=== PATIENT | female | born 1965 | race Caucasian/White ===

== ENCOUNTER 2020-11-23 23:59 | Inpatient (IN) | payer MEDICARE ==
[~2020-11-23] VITALS: Ht 160 cm; Wt 84.6 kg
--- NOTE | ~2020-11-23 | HEMODYNAMI ---
PATIENT:DAVEY CORNELIUS MEDICAL RECORD: [id number] : 65 [facility] AD[facility] DATE: 11/24/20 Generatedon:111:19 Patient name: DAVEY CORNELIUS Patient #: [id number] SSN: [id number] : 1965 Date of study: 11/26/2020 Page: Of Hemodynamic Procedure Report Patient Data Patient Demographics Procedure consent was obtained First Name: DAVEY Gender: Female Last Name: ASHLI : 1965 Patient #: [id number] Age: 54 year(s) Race: SSN: [id number] Additional ID: [id number] Contact details [address]: [address] [place] [address] State: [place] City: [place] Zip code: [address] Past Medical History Allergies: No known allergies Admission Admission Data Admission Date: 11/24/2020 Admission Time: 4:48 Arrival Date: 11/26/2020 Arrival Time: 0:00 Admit Source: Other Insurance Payor: Medicare Room #: D.2312 [facility] #: [id number] Lab Results Lab Result Date: 11/26/2020 Lab Result Time: 0:00 Biochemistry Name Units Result Min Max BUN mg/dl 15 --(--*-)-- 7 18 Creatinine mg/dl 0.7 --(*---)-- 0.6 1.3 eGFR ml/min 90 --(*---)-- 90 120 NONAFRICAN CBC Name Units Result Min Max Hematocrit % 31.9 *-(----)-- 42 54 Hemoglobin g/dl 10.2 *-(----)-- 13.5 17.5 Procedure Procedure Types Cath Procedure Diagnostic Procedure LHC [facility] w/Coronaries Intra-Aortic Balloon Pump Sedation Charges Moderate Sedation 10-24 minutes PCI Procedure Hemochron ACT Test Procedure Description Procedure Date Procedure Date: 11/26/2020 Procedure Start Time: 10:03 Procedure End Time: 10:40 Procedure Staff Name Function Patricia Wells RT Scrub Rosendo Gilbert RN Nurse Avila Clarke MD Performing Physician Jo Anderson RT Monitor Procedure Data Cath Procedure Fluoroscopy Diagnostic fluoroscopy Total fluoroscopy Time: 1.8 time: 1.8 min min Diagnostic fluoroscopy Total fluoroscopy dose: 445 dose: 445 mGy mGy Contrast Material Contrast Material Type Amount (ml) Isovue 370 50 Entry Location Entry Primary Successful Side Size Upsize Upsize Entry Closure Succes sful Closure Location (Fr) 1 (Fr) 2 (Fr) Remarks Device Remarks Femoral Right 5 Fr 8 Fr artery Estimated blood loss: 10 ml Diagnostic catheters Device Type Used For End Catheter Placement MULTIPACK JL 4.0 5Fr Procedure catheter MULTIPACK 3DRC 5Fr Procedure catheter MULTIPACK Pigtail 5 Fr Procedure catheter Procedure Complications No complications Procedure Medications Medication Administration Route Dosage Oxygen NC 5 l/min Lidocaine 2% added to field 20 Heparin Flush Bag added to field 2 bags (1000units/500ml NS) 0.9% NaCl I.V. 100 ml/hr Versed I.V. 1 mg Fentanyl I.V. 50 mcg Integrilin (Bolus I.V. 7.9 ml 2mg/ml) Heparin Drip I.V. drip 1000 units/hr (51053znaye/250 D5W) Hemodynamics Rest HGB: 10.2 (g/dl) Heart Rate: 78 (bpm) Pressure Samples Time Site Value (mmHg) Purpose Heart Use Rate(bpm) 10:10 LV 110/10,5 Snapshot 72 Gradients Valve Time Site Site Mean SEP/DFP Peak To Heart Use 1 2 (mmHg) (sec/min) Peak Rate (mmHg) (bpm) Aortic 10:10 LV AO 75 Snapshots Pre Cath Intra NCS Post Cath Vital Signs Time Heart Resp SPO2 etCO2 NIBP (mmHg) Rhythm Pain Sedation Rate (ipm) (%) (mmHg) Status Level (bpm) 9:52:40 75 36 96 0 141/82(118) NSR 0 (11) 10(A) , No pain 9:56:54 81 13 95 0 133/78(105) NSR 0 (11) 10(A) , No pain 10:01:08 73 15 93 0 134/75(100) NSR 0 (11) 10(A) , No pain 10:05:22 75 11 94 0 136/74(99) NSR 0 (11) 9(A) , No pain 10:09:34 78 18 93 0 134/76(105) NSR 0 (11) 9(A) , No pain 10:13:50 79 18 95 0 135/70(109) NSR 0 (11) 9(A) , No pain 10:18:04 77 18 94 0 126/76(106) NSR 0 (11) 9(A) , No pain 10:22:14 79 15 95 0 129/74(114) NSR 0 (11) 9(A) , No pain 10:26:26 72 16 94 0 130/75(105) NSR 0 (11) 10(A) , No pain 10:30:44 71 16 94 0 124/57(91) NSR 0 (11) 10(A) , No pain 10:34:48 72 23 96 0 116/61(95) NSR 0 (11) 10(A) , No pain 10:53:55 79 20 95 0 121/53(95) NSR 0 (11) 10(A) , No pain 10:58:09 73 19 95 0 118/60(102) NSR 0 (11) 10(A) , No pain 11:08:48 80 16 96 0 107/58(100) NSR 0 (11) 10(A) , No pain Medications Time Medication Route Dose Verified Delivered Reason Notes Effectiveness by by 9:55:04 Oxygen NC 5 l/min Avila Stuartie used for high St Ottoniel Gilbert RN procedure flow in MD use from icu. 9:55:11 Lidocaine 2% added 20ml Avila Avila for local to vial [facility] anesthetic field MD DOLAN 9:55:18 Heparin Flush added 2 bags Avila Avila used for Bag to [facility] procedure (1000units/500ml field MD DOLAN NS) 9:55:26 0.9% NaCl I.V. 100 Avila Robbins Per ml/hr St Ottoniel Gilbert RN physician 10:02:26 Versed I.V. 1 mg Avila Davidsonie for sedation St Ottoniel Gilbert RN, MD 10:02:33 Fentanyl I.V. 50 mcg Avila Davidsonie for sedation St Ottoniel Gilbert RN, MD 10:08:09 Integrilin I.V. 7.9 ml Avila Davidsonie for wasted (Bolus 2mg/ml) St Ottoniel coles 2.1 ml therapy of vial 10:33:59 Heparin Drip I.V. 1000 Avila Rosendo Per [facility] ed (83187hbwwm/250 drip units/hr St Ottoniel Gilbert RN physician with dr Swift) MD giang via alaris pump at 10 ml/hr. Procedure Log Time Note 9:14:41 Informed consent obtained and on chart 9:15:02 Diagnostic Cath Status : Urgent 9:15:28 Arrival Date: 11/26/2020 12:00:00 AM 9:15:29 Admit Source: Other 9:15:43 Insurance Payor : Medicare 9:33:54 Lab Result : Hemoglobin 10.2 g/dl 9:33:54 Lab Result : Hematocrit 31.9 % 9:33:54 Lab Result : eGFR NONAFRICAN 90 ml/min 9:33:54 Lab Result : BUN 15 mg/dl 9:33:54 Lab Result : Creatinine 0.7 mg/dl 9:36:29 ACC Patient presents with Unstable Angina CCS Anginal Class 2--Slight limitation of ordinary activity. 9:36:32 Procedure Status Urgent Heart Cath (IP). 9:36:35 Time tracking: Regular hours (M-F 7:00 - 5:00) 9:36:37 Rosendo Gilbert RN sent for patient. Start room use. 9:37:06 H&P Date Dictated: 11/24/2020 Within 30 days and on chart.. 9:37:09 Family in waiting room. 9:37:10 Patient NPO since Midnight. 9:37:18 Patient allergic to No known allergies 9:37:25 Lab results completed and on chart. 9:37:29 Stress Test: no; N/A ? 9:37:32 Sharps counted by scrub and verified by R.N. 9:37:32 Alarms reviewed by R. N. 9:42:56 Patient received from ICU to CCL 2 Alert and oriented. Tansferred to table in Supine position. 9:42:57 Warm blankets applied, and lizet hugger turned on for patient comfort. 9:42:58 ECG and BP/O2 sat monitors applied to patient. 9:42:58 Correct patient and procedure confirmed by team. 9:42:59 Pre-op teaching completed and patient verbalized understanding. 9:42:59 Pre-procedure instructions explained to patient. 9:43:02 Is the patient allergic to Iodine/contrast media? No. 9:51:32 Vital chart was started 9:55:04 Oxygen 5 l/min NC was administered by Rosendo Gilbert RN; used for procedure; high flow in use from icu. Verbal order read back and verified. 9:55:11 Lidocaine 2% 20ml vial added to field was administered by Avila Clarke MD; for local anesthetic; Verbal order read back and verified. 9:55:18 Heparin Flush Bag (1000units/500ml NS) 2 bags added to field was administered by Avila Clarke MD; used for procedure; Verbal order read back and verified. 9:55:26 0.9% NaCl 100 ml/hr I.V. was administered by Rosendo Gilbert RN; Per physician; Verbal order read back and verified. 9:56:08 Baseline sample Acquired. 9:56:17 Rhythm: sinus rhythm , w/ ST elevation 9:56:19 Full Disclosure recording started 9:56:24 Was the patient premedicated? No 9:56:27 Is patient on blood thinner?Unknown 9:56:29 Patient diabetic? Yes. 9:56:31 If diabetic: On Metformin? Yes 9:56:36 If on Metformin: Last Dose? 11/23/2020 9:58:01 Patient not . Patient has had hysterectomy. 9:58:02 ----Pre-sedation anethsthesia assessment.---- 9:58:04 Previous problem with sedation/anesthesia? No ? 9:58:05 Snore? Yes 9:58:07 Sleep apnea? Unknown 9:58:08 Deviated septum? No 9:58:09 Opens mouth fully? Yes 9:58:10 Sticks out tongue? Yes 9:58:15 Airway obstruction? No ? 9:58:21 Dentures? Yes in tight 9:58:51 Pre procedure: right dorsailis pedis pulse 1+ Palpable, but thready & weak; easily obliterated 9:58:54 Patient pain scale 0/10 ?. 9:59:00 IV patent on arrival in left antecubital with 0.9% NaCl at KVO. 9:59:06 Use device set Femoral Dx 9:59:07 ACIST Syringe (93836) opened to sterile field. 9:59:08 Medline Cath Pack ([id number]) opened to sterile field. 9:59:08 Bag Decanter (2001S) opened to sterile field. 9:59:10 ACIST Manifold (75610) opened to sterile field. 9:59:10 ACIST Hand Control (87054) opened to sterile field. 9:59:11 DIAGNOSTIC Multipack 5Fr catheter set ([id number]) opened to sterile field. 9:59:12 Tegaderm 4 x 4 (1626W) opened to sterile field. 9:59:13 SHEATH 5FR Nahma (LML750) opened to sterile field. 9:59:14 EMERALD Guide Wire (969-199) opened to sterile field. 9:59:49 Final Timeout: patient, procedure, and site verified with staff and physician. All members of the team are in agreement. 9:59:49 --------ALL STOP TIME OUT------ 9:59:54 Right groin site verified by team. 9:59:56 Fire Safety Assessment: A--An alcohol-based skin anteseptic being used preoperatively., C--Open oxygen or nitrous oxide is being used., D--An ESU, laser, or fiber-optic light is being used. 9:59:59 Physical assessment completed. ASA score P 2 - A patient with mild systemic disease as per Avila Clarke MD. 10:00:02 1) 90+ Normal kidney functon but urine findings or structural abnormalities or genetic trait point to kidney disease. 10:00:04 Maximum allowable contrast dose (3.7 X eGFR X 0.75)250 ml. 10:00:06 Sedation plan: IV Moderate Sedation Medication:Versed, Fentanyl 10:02:26 Versed 1 mg I.V. was administered by Rosendo Gilbert RN; for sedation; Verbal order read back and verified. 10:02:33 Fentanyl 50 mcg I.V. was administered by Rosendo Gilbert RN; for sedation; Verbal order read back and verified. 10:03:24 Procedure started. 10:03:36 Local anesthetic to right femoral artery with Lidocaine 2% by Avila Clarke MD.INITIAL ACCESS ONLY 10:05:05 A 5 Fr sheath was inserted into the Right Femoral artery 10:05:14 A MULTIPACK JL 4.0 5Fr catheter was advanced over the wire and used for Procedure. 10:05:44 LCA angiography performed. 10:05:46 Injector settings: Ml/sec: 3, Volume: 6, 10:06:39 Catheter removed. 10:06:45 A MULTIPACK 3DRC 5Fr catheter was advanced over the wire and used for Procedure. 10:07:16 RCA angiography performed. 10:07:18 Injector settings: Ml/sec: 3, Volume: 6, 10:07:41 RCA angiography performed. 10:07:45 Injector settings: Ml/sec: 3, Volume: 6, 10:07:48 ACCDominant side:Right 10:08:09 Integrilin (Bolus 2mg/ml) 7.9 ml I.V. was administered by Rosendo Gilbert RN; for antiplatelet therapy; wasted 2.1 ml of vial Verbal order read back and verified. 10:08:25 Catheter exchanged over wire. 10:08:30 A MULTIPACK Pigtail 5 Fr catheter was advanced over the wire and used for Procedure. 10:08:54 LV gram done using [place] 10:09:09 Injector settings: Ml/sec: 5, Volume: 15, 10:10:16 LV hemodynamics recorded. 10:10:32 EF : 45 % 10:10:36 Catheter removed. 10:14:50 IABP-------- 10:18:[address] Van (833690) opened to sterile field. 10:18:43 Sheath upsized to a 8 Fr. 10:18:49 IABP 34cm balloon catheter ([id number]) opened to sterile field. 10:19:00 34cc IABP inserted into the RFA . 10:27:57 TUBING Contrast Injection High Pressure (HEU115R) opened to sterile field. 10:28:20 Augmentation: 1:1 per physician. 10:28:55 Trigger: Pressure 10:29:40 Procedure ended.(Physican Out) 10:29:43 Fluoroscopy time 01.80 minutes. 10:29:47 Fluoroscopy dose: 445 mGy 10:29:47 Flurop Dose total: 445 10:29:52 Dose Area Product 77218 mGy/cm. 10:30:00 Contrast amount:Isovue 370 50ml. 10:30:03 Maximum allowable dose exceeded? No. 10:30:04 Sharps counted by scrub and verified by R.N. 10:30:18 Post-op/insertion site Right Femoral artery dressed using a 4 x 4 and Tegaderm. 10:30:25 Post right femoral artery:stable, soft, clean and dry 10:33:34 SUTURE ETHILON 2-0 BLK MONO FS opened to sterile field. 10:33:35 SUTURE ETHILON 2-0 BLK MONO FS opened to sterile field. 10:33:59 Heparin Drip (08595trkkq/250 D5W) 1000 units/hr I.V. drip was administered by Rosendo Gilbert RN; Per physician; verified with dr giang via alaris pump at 10 ml/hr. Verbal order read back and verified. 10:34:10 IABP SUTURED TO SKIN WITH 2-0 SILK BY TECH AND TEGADERM APPLIED TO HOLD PLACEMENT. 10:34:57 Post Procedure Pulses reassessed and unchanged 10:35:00 Post procedure: right dorsailis pedis pulse 1+ Palpable, but thready & weak; easily obliterated. 10:35:04 Post-procedure physical assessment completed. ASA score P 3 - A patient with severe systemic disease as per Avila Clarke MD. 10:35:07 Post procedure rhythm: unchanged. 10:35:09 Estimated blood loss: 10 ml 10:35:11 Patient needs reinforcement of post procedure teaching. 10:35:11 Post procedure instruction explained to patient.Patient verbalizes understanding. 10:36:10 Procedure type changed to Cath procedure, Diagnostic procedure, LHC, C w/Coronaries, Intra-Aortic Balloon Pump, Sedation Charges, Moderate Sedation 10-24 minutes, PCI procedure, Hemochron ACT Test 10:39:50 Procedure and supply charges have been captured, reviewed, submitted and are correct. 10:39:53 Procedure Complication : No complications 10:39:59 [facility] Findings: MVD- PCI performed (see procedure note) 10:40:02 [facility] Findings: MVD- CABG consult 10:40:04 Operative report dictated upon procedure completion. 10:40:05 See physician's report for complete and final results. 10:40:11 Report given to ICU. 10:40:15 Patient transfered to ICU with Bed. 10:40:17 Full Disclosure recording stopped 10:40:17 Procedure ended. 10:40:25 End room use (Document Last) 10:42:03 Vital chart was stopped 11:03:33 Pt with femoral sheath to rt groin for IABP, no hematoma or bleeding noted. 11:04:50 Awaiting new room assignment. Device Usage Item Name Manufacture Quantity Catalog Number [facility] Minimal Lot# / Charge Number Stock Stock Serial# Code ACIST Syringe Acist 1 18541 710775 879951 [id number] 20 (72521) Medical [employer] [place] Bag Decanter Microtek 1 282450 64202 195687 5 () Medical Inc. Medline Cath Medline 1 [id number] 579847 15586 695825 5 Pack ([id number]) ACIST Hand Acist 1 11935 285339 987001 409177 5 Control (69826) Medical Systems Inc ACIST Manifold Acist 1 87114 507826 474388 636128 5 (22179) [employer] [place] DIAGNOSTIC Cardinal 1 [id number] 870161 08870 016793 30 Multipack 5Fr Health catheter set ([id number]) Tegaderm 4 x 4 3M 1 1626W 919050 819418 021846 5 (1626W) SHEATH 5FR Terumo 1 AEP259 511831 003272 607566 5 Nahma (NGC657) EMERALD Guide Cardinal 1 502-455 162883 099216 956454 5 Wire (502-455) Health MULTIPACK JL Cardinal 1 392183 5 4.0 5Fr Health catheter MULTIPACK 3DRC Cardinal 1 949873 5 5Fr catheter Health MULTIPACK Cardinal 1 092580 5 Pigtail 5 Fr Health catheter SHEATH 8FR St St Van 1 058947 091919 916042 725274 5 Van (615952) IABP 34cm GETINGE [place] 1 [id number] 122282 521664 677667 1 [facility] catheter (305443) ([id number]) TUBING Contrast Merit 1 [id number] 931594 471368 331321 5 Injection High Medical Pressure (SDH404N) SUTURE ETHILON Ethicon 2 664H 113067 196275 5 2-0 BLK MONO FS Signature Audit [place] Stage Time Signature Unsigned Intra-Procedure 11/26/2020 Jo Anderson 10:40:40 AM RT(R) Intra-Procedure 11/26/2020 Rosendo Gilbert RN 10:41:42 AM Intra-Procedure 11/26/2020 Avila Clarke MD 10:42:01 AM Ottoniel DOLAN 11/26/2020 10:52:53 AM Intra-Procedure 11/26/2020 Jo Anderson 11:19:06 AM RT(R) Intra-Procedure 11/26/2020 Rosendo Gilbert RN 11:19:22 AM Intra-Procedure 11/26/2020 Avila Bansal 11:19:37 AM Ottoniel DOLAN Signatures Nurse : Rosendo Gilbert RN Signature : Date : Time : Performing Physician : Signature : Avila Clarke MD Date : Time : Monitor : Jo Anderson Signature : RT Date : Time : [address] [address]
[2020-11-24] VITALS (12 sets, daily range): BP systolic 97–167; BP diastolic 46–108; BMI 34.0
--- NOTE | 2020-11-24 00:05 | NUR ---
PT PLACED ON BIPAP
[2020-11-24 00:25] LABS: BASOPHILS 0.8 % (0-2); EOSINOPHILS 0.9 % (0-7); HEMATOCRIT 38.9 % (36.0-48.0); HEMOGLOBIN 12.4 g/dL (12-16); LYMPHOCYTES 37.8 % (15-50); MCHC 31.8 g/dL (31.0-37.0); MCV 72.5 fL (80.0-100.0); MEAN PLATELET VOLUME 7.9 fL (7.4-10.4); MONOCYTES 4.2 % (2-11); NEUTROPHILS 56.3 % (40-80); PLATELET COUNT 446 10x3/uL (130-400); RBC 5.36 10x6/uL (4.00-5.40); WBC 17.4 10x3/uL (4.8-10.8)
[2020-11-24 00:35] LABS: ANION GAP 13.8 mmol/L (8-16); CALCIUM 7.8 mg/dL (8.5-10.1); CARBON DIOXIDE 24.8 mmol/L (21.0-32.0); POTASSIUM - SERUM 3.6 mmol/L (3.5-5.1)
[2020-11-24 00:56] LABS: BILIRUBIN - TOTAL 0.23 mg/dL (0.2-1.3); PROTEIN - SERUM 6.9 g/dL (6.4-8.2)
[2020-11-24 01:23] LABS: C-REACTIVE PROTEIN 0.2 mg/dL (0.0-0.9); TROPONIN-I 0.105 ng/mL (0.000-0.060)
[2020-11-24 04:56] LABS: APTT 27.6 SECONDS (22.8-39.4); INR 1.16 (0.85-1.17); PROTIME 13.7 SECONDS (11.6-15.0)
[2020-11-24 05:29] LABS: MAGNESIUM - SERUM 1.2 mg/dL (1.8-2.4)
[2020-11-24 05:41] LABS: SARS-CoV-2 ANTIGEN NEGATIVE- SARS-COV-2 (NEGATIVE)
[2020-11-24 05:42] LABS: UDS - AMPHET NEGATIVE QUAL (NEGATIVE); UDS - BARB NEGATIVE QUAL (NEGATIVE); UDS - BENZO NEGATIVE QUAL (NEGATIVE); UDS - COCAINE NEGATIVE QUAL (NEGATIVE); UDS - OPIATE NEGATIVE QUAL (NEGATIVE); UDS - PCP NEGATIVE QUAL (NEGATIVE); UDS - THC NEGATIVE QUAL (NEGATIVE)
[2020-11-24 05:51] LABS: BILIRUBIN NEGATIVE (NEGATIVE); KETONE NEGATIVE (NEGATIVE); NITRITE NEGATIVE (NEGATIVE); UROBILINOGEN NORMAL mg/dL (< 2)
--- NOTE | 2020-11-24 19:30 | NUR ---
PATIENT VOMITING INTO BIPAP MASK. PLACED PATIENT ON 9L HIGH FLOW NC. O2 SAT HOLDING AT 94%. ZOFRAN GIVEN. ASSESSED EMESIS AND SPUTUM BLOOD TINGED. PATIENT HR AND BP ELEVATED 2.5 OF LOPRESSOR ADMINISTERED PER ORDER. PAGED DR. FREY. NEW ORDERS GIVEN.
[2020-11-25] VITALS (21 sets, daily range): BP systolic 108–146; BP diastolic 59–92; BMI 33.3
[2020-11-25 05:28] LABS: EOSINOPHILS 0 % (0-7); HEMATOCRIT 32.7 % (36.0-48.0); HEMOGLOBIN 10.7 g/dL (12-16); LYMPHOCYTES 18.6 % (15-50); MCH 23.4 pg (26.0-34.0); MCHC 32.7 g/dL (31.0-37.0); MCV 71.5 fL (80.0-100.0); MEAN PLATELET VOLUME 7.7 fL (7.4-10.4); MONOCYTES 4.4 % (2-11); PLATELET COUNT 365 10x3/uL (130-400); RBC 4.57 10x6/uL (4.00-5.40); RDW 17.2 % (11.5-14.5); WBC 17.3 10x3/uL (4.8-10.8)
[2020-11-25 06:05] LABS: ALBUMIN 2.8 g/dL (3.4-5.0); BILIRUBIN - TOTAL 0.2 mg/dL (0.2-1.3); CARBON DIOXIDE 27.5 mmol/L (21.0-32.0); CREATININE - SERUM 0.9 mg/dL (0.6-1.3); PROTEIN - SERUM 6.5 g/dL (6.4-8.2)
[2020-11-25 06:09] LABS: ANION GAP 11.9 mmol/L (8-16); POTASSIUM - SERUM 4.4 mmol/L (3.5-5.1)
[2020-11-25 06:12] LABS: TROPONIN-I 12.393 ng/mL (0.000-0.060)
--- NOTE | 2020-11-25 06:24 | NUR ---
PAGED CARDIOLOGY REGARDING ELEVATED TROPONIN OF 12.393. SPOKE WITH MARIA GUADALUPE VALENCIA APN. NO ORDERS GIVEN AT THIS TIME. MARIA GUADALUPE IS GONG TO CALL MANAGER CARDIOVASCULAR AND CALL BACK.
[2020-11-25] MEDS ORDERED: LISINOPRIL2.5 MG PO (06:30)
[2020-11-25] MEDS ORDERED: GLUCOPHAGE1000 MG (06:31)
[2020-11-25] MEDS ORDERED: METOPROLOL TART50 MG PO (06:31)
[2020-11-25] MEDS ORDERED: TRAZODONE HCL100 MG PO (06:32)
[2020-11-25] MEDS ORDERED: OMEPRAZOLE CAP 20M PO (06:32)
[2020-11-25] MEDS ORDERED: GLIPIZIDE10 MG PO (06:32)
[2020-11-25] MEDS ORDERED: LOVASTATIN20 MG PO (06:33)
--- NOTE | 2020-11-25 12:35 | NUR ---
PATIENT SITTING ON SIDE OF BED HOLDING CHEST, C/O CHEST PAIN 9/10, AND STATES CANT GET HER BREATH. HR - 141 TO 150, WITH NOTED ST DEPRESSION IN LEAD II, PLACED ON BIPAP, RT NOTIFIED AND PATIENTS RN NOTIFIED. RT AT ROOM FOR BREATHING TREATMENT AND LACY SAUNDERS PAGED. PATIENT RATES PAIN CURRENTLY AT 4/10, AND HR - 86 SPO2 98% ON BIPAP. 12 LEAD ECG COMPLETED.
--- NOTE | 2020-11-25 12:54 | NUR ---
REPAGED CARDIOLOGY. AWAITING CALL BACK.
[2020-11-26] VITALS (48 sets, daily range): BP systolic 114–149; BP diastolic 55–90; Ht 160 cm; Wt 84.6 kg
[2020-11-26 05:20] LABS: BASOPHILS 0.6 % (0-2); EOSINOPHILS 0.1 % (0-7); HEMATOCRIT 31.9 % (36.0-48.0); HEMOGLOBIN 10.2 g/dL (12-16); LYMPHOCYTES 26.8 % (15-50); MCH 23.1 pg (26.0-34.0); MCHC 31.9 g/dL (31.0-37.0); MCV 72.3 fL (80.0-100.0); MEAN PLATELET VOLUME 7.5 fL (7.4-10.4); MONOCYTES 5.1 % (2-11); NEUTROPHILS 67.4 % (40-80); PLATELET COUNT 306 10x3/uL (130-400); RBC 4.41 10x6/uL (4.00-5.40); RDW 17.4 % (11.5-14.5)
[2020-11-26 05:46] LABS: CALC OSMOLALITY 281 mosm/kg (275-300); CARBON DIOXIDE 28.9 mmol/L (21.0-32.0); CHLORIDE - SERUM 103 mmol/L (98-107); CREATININE - SERUM 0.7 mg/dL (0.6-1.3); GLUCOSE 189 mg/dL (74-106); POTASSIUM - SERUM 4.3 mmol/L (3.5-5.1); SODIUM 138 mmol/L (136-145); UREA NITROGEN 15 mg/dL (7-18); eGFR NON AFRICAN AMERICAN > 90 mL/min (90-120)
[2020-11-26 05:47] LABS: WBC 12.9 10x3/uL (4.8-10.8)
[2020-11-26 08:39] LABS: ALT (SGPT) 26 U/L (10-68); CHOL - HDL RATIO 4.6 ratio (2.3-4.1); CHOLESTEROL, TOTAL 160 mg/dL (0-200); HDL CHOLESTEROL 35 mg/dL (32-96); TRIGLYCERIDE 411 mg/dL (30-200)
--- NOTE | 2020-11-26 11:53 | NUR ---
PT ARRIVED TO UNIT AROUND 1130 VIA BED. IABP TO RIGHT GROIN. CONNECTED TO BAND LOG MILL AND CARRIAGE OPERATOR. VSS. ON 5L O2 VIA HIGH FLOW NC. PIV TO LEFT AC WITH HEPARIN AT 1000UNIT/HR, 18G PIV TO RIGHT WRIST SL. PUREWICK SET UP AT THIS TIME FOR VOIDING. DENIES PAIN AT THIS TIME. INSTRUCTED TO LAY FLAT AND KEEP RIGHT LEG STRAIGHT. WILL CONTINUE TO MONITOR.
--- NOTE | 2020-11-26 12:33 | NUR ---
CARDIOLOGY PAGED AT THIS TIME.
--- NOTE | 2020-11-26 12:55 | NUR ---
SPOKE WITH MARIA GUADALUPE FELDER APN WITH CARDIOLOGY. INSTRUCTED TO FOLLOW HEPARIN DRIP PROTOCOL.
[2020-11-26 13:54] LABS: APTT 32.8 SECONDS (22.8-39.4); INR 1.21 (0.85-1.17); PROTIME 14.1 SECONDS (11.6-15.0)
[2020-11-26 13:58] LABS: EOSINOPHILS 0.8 % (0-7); HEMATOCRIT 30.7 % (36.0-48.0); HEMOGLOBIN 10.1 g/dL (12-16); LYMPHOCYTES 36.1 % (15-50); MCH 23.9 pg (26.0-34.0); MCHC 32.9 g/dL (31.0-37.0); MCV 72.7 fL (80.0-100.0); MEAN PLATELET VOLUME 7.6 fL (7.4-10.4); NEUTROPHILS 57.1 % (40-80); PLATELET COUNT 286 10x3/uL (130-400); RBC 4.22 10x6/uL (4.00-5.40); RDW 17.3 % (11.5-14.5); WBC 9.7 10x3/uL (4.8-10.8)
[2020-11-26 14:28] LABS: ALBUMIN 2.8 g/dL (3.4-5.0); ALKALINE PHOSPHATASE 24 U/L (30-120); ALT (SGPT) 31 U/L (10-68); BILIRUBIN - TOTAL 0.35 mg/dL (0.2-1.3); CALC OSMOLALITY 276 mosm/kg (275-300); CALCIUM 8.1 mg/dL (8.5-10.1); CARBON DIOXIDE 28.7 mmol/L (21.0-32.0); CHLORIDE - SERUM 103 mmol/L (98-107); CHOLESTEROL, TOTAL 177 mg/dL (0-200); CREATININE - SERUM 0.6 mg/dL (0.6-1.3); GLUCOSE 157 mg/dL (74-106); PHOSPHOROUS 3.1 mg/dL (2.5-4.9); POTASSIUM - SERUM 3.9 mmol/L (3.5-5.1); PRO BNP 5568 pg/mL (0-125); PROTEIN - SERUM 5.9 g/dL (6.4-8.2); SODIUM 137 mmol/L (136-145); T4 THYROXIN - FREE 1.01 ng/dL (0.76-1.46); THYROID STIMULATING HORMONE 1.78 uIU/mL (0.36-3.74); UREA NITROGEN 12 mg/dL (7-18); URIC ACID 5.5 mg/dL (2.6-7.2); eGFR NON AFRICAN AMERICAN > 90 mL/min (90-120)
--- NOTE | 2020-11-26 15:19 | NUR ---
BP 130/73, IABP 143/74 MEAN 127. NITRO AT 33.3MCG/MIN. DR. SHORE MADE AWARE. ORDERED LOPRESSOR 2.5MG IV Q4HRS. STOP LOPRESSOR AT 4 IN THE MORNING. STOP HEPARIN DRIP AT 4 IN THE MORNING ASWELL.
--- NOTE | 2020-11-26 17:07 | NUR ---
CONSENT FOR PROCEDURE SIGNED AND PLACED IN CHART. UA COLLECTED VIA IN AND OUT CATH. STERILE TECHNIQUE USED. PT TOLERATED WELL. NO BLEEDING AT AIBP SITE NOTED. PT RESTING COMFORTABLY. WILL CONTINUE TO MONITOR.
[2020-11-26 17:34] LABS: BILIRUBIN NEGATIVE (NEGATIVE); KETONE NEGATIVE (NEGATIVE); NITRITE NEGATIVE (NEGATIVE); UROBILINOGEN NORMAL mg/dL (< 2)
--- NOTE | 2020-11-26 19:30 | NUR ---
RECEIVED PATIENT IN BED, AWAKE ALERT AND ORIENTED X 4. IABP TO RT GROIN INTACT 1:1 WITH ECG TRIGGER. ASSESSMENT COMPLETED PER FLOW SHEET WITH NO ACUTE DISTRESS OBSERVED. VSS. NSR ON MONITOR. DENIES CHEST PAIN OR SHORTNESS OF BREATH AT PRESENT. CONTINUES ON NTG GTT AND TITRATED TO EFFECT. DISCUSSED IMPORTANCE OF KEEPING RLE STRAIGHT AND REMAINING SUPINE. PATIENT VOICED UNDERSTANDING. INSTRUCTED ON USE INCENTIVE SPIROMETER WITH ENCOURAGEMENT GIVEN, PATIENT COMPLIANT PULLS 1000 X 10. CALL LIGHT IN EASY REACH AND ABLE TO UTILIZE TO MAKE NEEDS KNOWN.
[2020-11-27] VITALS (71 sets, daily range): BP systolic 81–145; BP diastolic 42–96
--- NOTE | 2020-11-27 04:00 | NUR ---
HEPARIN GTT DC'D PER ORDER
[2020-11-27 05:40] LABS: HEMATOCRIT 32.1 % (36.0-48.0); HEMOGLOBIN 10.4 g/dL (12-16); MCH 23.9 pg (26.0-34.0); MCHC 32.4 g/dL (31.0-37.0); MCV 73.8 fL (80.0-100.0); MEAN PLATELET VOLUME 9.2 fL (7.4-10.4); RBC 4.35 10x6/uL (4.00-5.40); RDW 16.6 % (11.5-14.5); WBC 9.7 10x3/uL (4.8-10.8)
--- NOTE | 2020-11-27 06:15 | NUR ---
PATIENT TRANSPORTED TO OR PER HEART TEAM.
[2020-11-27 06:18] LABS: ALKALINE PHOSPHATASE 29 U/L (30-120); ALT (SGPT) 33 U/L (10-68); BILIRUBIN - TOTAL 0.33 mg/dL (0.2-1.3); CALCIUM 8.3 mg/dL (8.5-10.1); CARBON DIOXIDE 29.6 mmol/L (21.0-32.0); CHLORIDE - SERUM 100 mmol/L (98-107); POTASSIUM - SERUM 3.7 mmol/L (3.5-5.1); PROTEIN - SERUM 6.2 g/dL (6.4-8.2); SODIUM 136 mmol/L (136-145); UREA NITROGEN 13 mg/dL (7-18); eGFR NON AFRICAN AMERICAN 79 mL/min (90-120)
[2020-11-27 06:28] LABS: CALC OSMOLALITY 277 mosm/kg (275-300); CREATININE - SERUM 0.8 mg/dL (0.6-1.3); GLUCOSE 211 mg/dL (74-106)
--- NOTE | 2020-11-27 08:46 | NUR ---
BOTTOM OF RIGHT FOOT BEGINING STAGE OF DM ULCER
--- NOTE | 2020-11-27 13:22 | NUR ---
1315-repositioned et tube by rt -pull back 2cm-hr increased from [address]-iabp decreased to 1:2-dr orantes notified stat-ci at same 2.7-rhythm sinus-pt biting down on et tube-dobutamine placed on hold as ordered mso4 2mg ivp given as directed-lab drawn as ordered-l lateral breath sounds improved with clearer a/e-hr decreased to 107-iabp returned to 1:1 ci 2.4-dobutamine remains on hold
[2020-11-27 13:24] LABS: BASOPHILS 0.2 % (0-2); EOSINOPHILS 0.2 % (0-7); HEMATOCRIT 34.3 % (36.0-48.0); HEMOGLOBIN 11.1 g/dL (12-16); LYMPHOCYTES 8.8 % (15-50); MCH 24.4 pg (26.0-34.0); MCHC 32.5 g/dL (31.0-37.0); MCV 75.3 fL (80.0-100.0); MEAN PLATELET VOLUME 7.2 fL (7.4-10.4); MONOCYTES 6.2 % (2-11); NEUTROPHILS 84.6 % (40-80); RBC 4.55 10x6/uL (4.00-5.40); RDW 19.6 % (11.5-14.5); WBC 11.7 10x3/uL (4.8-10.8)
[2020-11-27 13:31] LABS: PLATELET COUNT 204 10x3/uL (130-400)
[2020-11-27 13:32] LABS: APTT 26.2 SECONDS (22.8-39.4); INR 1.3 (0.85-1.17)
[2020-11-27 13:40] LABS: ALKALINE PHOSPHATASE 22 U/L (30-120); ALT (SGPT) 28 U/L (10-68); BILIRUBIN - TOTAL 0.45 mg/dL (0.2-1.3); CALC OSMOLALITY 285 mosm/kg (275-300); CALCIUM 7.9 mg/dL (8.5-10.1); CARBON DIOXIDE 29.5 mmol/L (21.0-32.0); CHLORIDE - SERUM 106 mmol/L (98-107); CREATININE - SERUM 0.7 mg/dL (0.6-1.3); GLUCOSE 169 mg/dL (74-106); POTASSIUM - SERUM 3.9 mmol/L (3.5-5.1); PROTEIN - SERUM 5.9 g/dL (6.4-8.2); SODIUM 142 mmol/L (136-145); eGFR NON AFRICAN AMERICAN > 90 mL/min (90-120)
[2020-11-27 13:41] LABS: UREA NITROGEN 9 mg/dL (7-18)
--- NOTE | 2020-11-27 14:32 | NUR ---
1225-RECIEVED FROM OPEN HEART TEAM PER ASSESSMENT-R GROIN IABP IN PLACE AND LEG STRAIGHT-SITE INTACT AND SET TO 1;1 EKG WITH GOOD WAVE FORM-PLACED TO MONITOR AND VENTILATOR-RT AT BEDSIDE 1245-PORT CXR DONE-DR FREY AT BEDSIDE -STATUS REPORT GIVEN 1250-PT ABLE TO OPEN EYS TO QUESTIONS 1330-CI INDEX NOTED AT 1.7-LAB DRAWN AT THIS TIME-DR SHORE NOTIFIED OF SAME ORDER RECIEVED WITH PARAMETER IABP >70-N/S 250ML STARTED DIRECTED
--- NOTE | 2020-11-27 14:42 | NUR ---
1400-MOTHER AND SON AT BEDSIDE-PT ABLE TO OPEN EYES WHEN SPOKEN TO-NOTED INCREASED HR TO 99 AND ABP 142/61-MORPHINE 2MG IVP GIVEN FOR POSSIBLE PAIN-MEAN JOIN=571-QOLUSYMN TO FAMILY DECREASE STIMULUS AT THIS TIME
--- NOTE | 2020-11-27 17:23 | NUR ---
1615-PT AWAKE AND ALERT-ABLE TO NOD TO QUESTIONS-MOVING ARMS-CPAP TRIAL STARTED BY RT-RR INCREASED TO 35-ENCOURAGED SLOW DEEPER BREATHS-PT NOT ABLE TO COMPLY-TOTAL TIME 10MIN-HR INCREASED TO 110-ABP 148/98-RETURNED TO A/C-18-DR SHORE NOTIFIED -STARTED DIPRIVAN WITH JANA GOAL OF 1-2 ORDERED MORPHINE 2MG IVP GIVEN REPOSITIONED PT TO LEFT TILT-R LEG STRAIGHT-IABP SITE INTACT 1700-DIPRIVAN AT 15MCG-JANA 2-HR 91-ABP 124/55-RR 18
--- NOTE | 2020-11-27 17:36 | NUR ---
SON UPDATED VIA TELEPHONE REGARDING CPAP TRIAL FAILURE PT PLACED ON SEDATION WITH PLAN TO RESUME CPAP TRIALS IN MORNING
[2020-11-28] VITALS (67 sets, daily range): BP systolic 83–139; BP diastolic 45–75
[2020-11-28 05:32] LABS: HEMATOCRIT 28.3 % (36.0-48.0); HEMOGLOBIN 9.5 g/dL (12-16); MCH 25.2 pg (26.0-34.0); MCHC 33.4 g/dL (31.0-37.0); MCV 75.4 fL (80.0-100.0); MEAN PLATELET VOLUME 7.5 fL (7.4-10.4); RBC 3.75 10x6/uL (4.00-5.40); RDW 19.8 % (11.5-14.5); WBC 10.6 10x3/uL (4.8-10.8)
[2020-11-28 05:50] LABS: ALBUMIN 2.4 g/dL (3.4-5.0); ALKALINE PHOSPHATASE 18 U/L (30-120); ALT (SGPT) 21 U/L (10-68); BILIRUBIN - TOTAL 0.36 mg/dL (0.2-1.3); CALC OSMOLALITY 281 mosm/kg (275-300); CALCIUM 6.9 mg/dL (8.5-10.1); CARBON DIOXIDE 23.6 mmol/L (21.0-32.0); CHLORIDE - SERUM 102 mmol/L (98-107); CREATININE - SERUM 0.6 mg/dL (0.6-1.3); GLUCOSE 320 mg/dL (74-106); POTASSIUM - SERUM 3.5 mmol/L (3.5-5.1); PROTEIN - SERUM 5.1 g/dL (6.4-8.2); SODIUM 136 mmol/L (136-145); UREA NITROGEN 7 mg/dL (7-18); eGFR NON AFRICAN AMERICAN > 90 mL/min (90-120)
--- NOTE | 2020-11-28 11:33 | OP ---
PATIENT NAME: DAVEY CORNELIUS MEDICAL RECORD: [id number] :65 LOCATION:D.[facility] D.CV07 ADMISSION DATE:11/24/20 SURGEON: JR SHORE MD DATE OF OPERATION: 11/27/2020 SURGEON: Jr Shore MD PROCEDURE PERFORMED: 1. Coronary artery bypass graft times 3 (left internal mammary artery to LAD, radial artery from aorta to second diagonal, reverse saphenous vein graft from aorta to obtuse marginal), 2 arterial, 1 venous graft. 2. Left radial artery harvest. PREOPERATIVE DIAGNOSES: Acute myocardial infarction, cardiomyopathy and coronary artery disease. POSTOPERATIVE DIAGNOSES: Acute myocardial infarction, cardiomyopathy and coronary artery disease, left main equivalent coronary artery disease. ANESTHESIA: General endotracheal anesthesia. ESTIMATED BLOOD LOSS: Total cardiopulmonary bypass with Cell Saver retransfusion 1 pack red blood cells. SPECIMENS: None. COMPLICATIONS: None. CONDITION: Stable. DISPOSITION: CV ICU. OPERATIVE FINDINGS: 1. Transesophageal echocardiography revealed normal wall contractility with mild mitral regurgitation. Intraoperatively, however, there was anteroapical dyskinesis seen as expected from previous myocardial infarction. 2. Good quality greater saphenous vein harvested with open bridging harvest right lower extremity. The radial artery was small caliber. Also, it would not reach the obtuse marginal target, so it was used for the diagonal graft. 3. First diagonal small not grafted. 4. Left internal mammary artery good flow, LAD to 1.75 mm, good Doppler signal after anastomosis and after reversal of heparin. 5. Second diagonal 1.25 mm, a good match for the radial artery. 6. Obtuse marginal 1.5 mm with severe disease. OPERATIVE INDICATION: Coronary artery disease, myocardial infarction with intracoronary thrombus, left main equivalent coronary artery disease. PROCEDURE IN DETAIL: The patient with intraaortic balloon pump brought to the operating suite. General anesthesia was obtained. The patient was prepped and draped. Simultaneously, right lower leg open greater saphenous vein harvest was performed with side branches clipped, vessel ligated proximally and distally and removed, side branches tied, later closed in 2 in layers. Left arm radial artery harvest with radial artery exposed from the deep radial to 2 cm shy of the wrist and side branches clipped, vessel removed. The patient was OPERATIVE REPORT [id number] DAVEY CORNELIUS bradycardic and would not tolerate calcium channel infusion. Proximal and distal stumps were oversewn. The vessel was perfused with a papaverine solution and made ready for anastomosis. The arm was closed in 2 layers and tucked at the patient's side with appropriate padding. Median sternotomy incision was made. Subcutaneous tissue divided with electrocautery. The sternum was divided with a saw. The left hemisternum was elevated. The left pleural cavity was entered. Left internal mammary artery was taken down as a pedicle graft. Sternal retractor was placed. Pericardium was opened. Heparin was given. Aorta was cannulated. Dual stage venous cannula was inserted. The patient was placed on cardiopulmonary bypass and sites for distal anastomosis were selected. The patient was cooled. Antegrade cardioplegic cannula was inserted. Crossclamp was placed. Cardioplegia was given and repeated at 20-minute intervals during the cross clamp time. Distal anastomosis was performed in standard technique. Cardioplegia down each of the vein grafts after distal anastomosis. Proximal anastomosis with single crossclamp technique. The patient was rewarmed, crossclamp was removed. Aortic root de-aired, proximal and distal anastomotic sites inspected for bleeding. Single 6-0 and one of the proximals, the patient was weaned from cardiopulmonary bypass after full rewarming and was stable. The patient was decannulated. The cannula sites were oversewn. Protamine was given. Thorough irrigation was undertaken. Left chest was evacuated and irrigated. The internal mammary harvest site was inspected for bleeding. A drain was placed in the mediastinum with the tip in the right pleural cavity and one in the left pleural cavity. Ventricular pacing wire was placed. Grafts lay appropriately and good Doppler signal was noted. Hemostasis was assured. Pericardial fat was loosely reapproximated in the midline. The sternum was closed with wires. Fascia was closed. Subcutaneous tissue was closed. Skin was closed. Dermabond was placed. The needle and sponge counts were reported as correct and the patient was taken to the ICU in stable condition. TRANSINT:[id number] Voice Confirmation ID: [id number] DOCUMENT ID: [id number] JR SHORE MD at 1133 CC: EMERALD MONAHAN MD [id number] DICTATION DATE: 11/27/20 1209 BACKPACKERS MANAGER: 11/27/[address] [facility] [address] [facility] [place] [address]
--- NOTE | 2020-11-28 18:33 | NUR ---
1100-DR SHORE AT BEDSIDE-PT SEDATED WITH DIPRIVAN FOR JANA OF 1-PLANNED REMOVAL OF IABP-CHANGED TO 1:2 DIRECTED 1115-CHANGED TO 1:3 DIRECTED 1120-TURNED OFF DIRECTED-IABP REMOVED BY DR SHORE-WITH MANUAL PRESSURE TO SITE BY DR SHORE [id number] OBTAINED-DOPPLER STRONG R PEDAL CONTINUED MANUAL PRESSURE AT SITE FOR 20MIN BY RN-PP WITH DOPPLER STRONG 1215-L ARM DRG REMOVED -INCISION SITE CHECKED BY DR SHORE-STERI STRIP APPLIED WHERE DIRECTED-INCISION WELL APPROXIMATED AND INTACT-RESERVE L ARM CONFIRMED 1330-HR CONT 122 ST -DR SHORE PRESENT AND DIRECTED 2.5 LOPRESSOR IV PUSH 1530-HR RETURNED TO 118 ST -STATUS REPORT CALLED-NOTIFIED RT OF DIRECTION FOR WEANING TRIAL TO START-LOPRSSOR 2.5MG IVP GIVEN-PT AWAKE AND ALERT-JANA 4-SIMV PLACED AT 4 FROM 8 AND DIRECTION GIVEN TO PT -TOLERATING AT THIS TIME- 1550-RR 38-SAT 86-SVO2 42-ABP 86/48-INDEX 1.7-CPAP TRIAL STOPPED AND RETURNED TO A/C-DIPRIVAN BOLUS OF 10MG PER IVAC GIVEN AND PLACED AT 20MCG GTT RATE-NEOSYNEPHRINE GTT CALLED FOR FROM PHARMACY-NTG OFF 1615-ABP 89/48-CI 1.7-SAILAJA GTT STARTED 0.5 [address] SHORE NOTIFIED AND DIRECTION TO STOP CPAP TRIALS SEDATE OVERNIGHT-250ML NS BOLUS STARTED 1730-SAILAJA DECREASED TO 0.2-JANA 1 CI 2.0-SVO2 61 SAT 99 1830-SAILAJA OFF ABP 142/65
--- NOTE | 2020-11-28 19:55 | NUR ---
NOTIFIED DR. SHORE OF ELEVATED HEART RATE 115. [place] RECEIVED.
[2020-11-29] VITALS (39 sets, daily range): BP systolic 91–174; BP diastolic 56–94
[2020-11-29 06:00] LABS: HEMATOCRIT 23.5 % (36.0-48.0); HEMOGLOBIN 7.6 g/dL (12-16); MCHC 32.5 g/dL (31.0-37.0); MCV 76.8 fL (80.0-100.0); MEAN PLATELET VOLUME 7.6 fL (7.4-10.4); RBC 3.06 10x6/uL (4.00-5.40); RDW 20.2 % (11.5-14.5); WBC 9.1 10x3/uL (4.8-10.8)
[2020-11-29 07:40] LABS: ALKALINE PHOSPHATASE 15 U/L (30-120); BILIRUBIN - TOTAL 0.25 mg/dL (0.2-1.3); CALC OSMOLALITY 282 mosm/kg (275-300); CARBON DIOXIDE 22.1 mmol/L (21.0-32.0); CHLORIDE - SERUM 103 mmol/L (98-107); CREATININE - SERUM 0.5 mg/dL (0.6-1.3); GLUCOSE 305 mg/dL (74-106); POTASSIUM - SERUM 3.1 mmol/L (3.5-5.1); PROTEIN - SERUM 4.2 g/dL (6.4-8.2); SODIUM 137 mmol/L (136-145); UREA NITROGEN 6 mg/dL (7-18); eGFR NON AFRICAN AMERICAN > 90 mL/min (90-120)
[2020-11-29 07:43] LABS: ALBUMIN 1.7 g/dL (3.4-5.0); ALT (SGPT) 14 U/L (10-68); CALCIUM 5.7 mg/dL (8.5-10.1)
--- NOTE | 2020-11-29 07:59 | NUR ---
DR SHORE IN UNIT, AWARE OF CALCIUM
--- NOTE | 2020-11-29 08:00 | OP ---
PATIENT NAME: DAVEY CORNELIUS MEDICAL RECORD: [id number] :65 LOCATION:[facility]CV07 ADMISSION DATE:11/24/20 SURGEON: ASHISH JAQUEZ MD DATE OF OPERATION: 11/28/2020 SURGEON: Ashish Jaquez MD PROCEDURE: Percutaneous removal of right femoral intraaortic balloon pump. PREOPERATIVE DIAGNOSIS: Acute myocardial infarction. POSTOPERATIVE DIAGNOSIS: Acute myocardial infarction. DESCRIPTION OF PROCEDURE: With the patient supine in the intensive care and with heart rate, blood pressure, and pulse oximetry monitored with the patient intubated and intravenous sedation, the sutures holding the balloon pump were removed. The balloon pump was removed intact and direct pressure was held for 30 minutes. Good Doppler right dorsalis pedis was noted. No apparent complications. The patient is stable. TRANSINT:[id number] Voice Confirmation ID: [id number] DOCUMENT ID: [id number] ASHISH JAQUEZ MD at 0800 CC: [id number] DICTATION DATE: 11/28/20 1203 LINUX UNIX ENGINEER: 11/28/20 1254 ADM IN [place] [id number] [place] [address]
--- NOTE | 2020-11-29 08:38 | NUR ---
PT STARTED WEANING VENT TO SIMV 10/5 50% PER DR SHORE
--- NOTE | 2020-11-29 09:27 | NUR ---
PLACED PT BACK TO AC SETTING RR RATE 42+
--- NOTE | 2020-11-29 10:47 | NUR ---
REPEAT ABG REVIEWED BY DR SALVADOR WHILE IN UNIT
--- NOTE | 2020-11-29 13:21 | NUR ---
Nutrition Reassessment/Follow-up: POD 2 CABG. Intubated/sedated. Receiving Diprivan @ 20.4 mL/hr this AM; provides 539 kcal/day. Discussed in IDT rounds. Diet: NPO Wt: 192.5# (11/29)Adj BW: 134.3# Labs noted: Glu 305, Ca 5.7, Alb 1.7 Meds reviewed Est needs: 1869 kcal/day (PSU ) 60-75 g protein/day (1-1.2 g/kg adj BW) 1869 mL fluid/day (1 mL/kcal) or per MD Nutrition Diagnosis: -Inadequate energy intake R/T intubation AEB NPO status. -Altered nutrition-related lab values R/T DM AEB Glu 305. Nutrition Goals: -If remains intubated, start TF within 24 hrs. -Meet est fluid needs without fluid overload. -Stable dry wt. -Glu at or near normal. Nutrition Intervention: -If pt remains intubated, rec initiate TF within the next 24 hrs; rec Pulmocare @ goal rate of 40 mL/hr (provides 1440 kcal [77% est needs] & 60 g protein [80-100% est needs] daily. Also receiving kcal from Diprivan (539 kcal daily currently). -Monitor wt. -RD will follow up within 2-3 days.
--- NOTE | 2020-11-29 13:56 | NUR ---
CHESTER FAYE PER PROTOCOL
--- NOTE | 2020-11-29 14:12 | NUR ---
HR NOTED TO BE 112 SINUS TACH. SCHEDULED LOPRESSOR ADM HR NOW 98 NSR.
--- NOTE | 2020-11-29 14:30 | NUR ---
DR SHORE AT BEDSIDE GIVEN UDPATE. ORDER TO REMOVE SWAN. JENNIFER MARQUIS RN REMOVED SWAN CATH INTACT. NO NEW FINDINGS.
[2020-11-30] VITALS (55 sets, daily range): BP systolic 97–152; BP diastolic 50–78
--- NOTE | 2020-11-30 02:44 | NUR ---
PT HAS HAD SUBOPTIMAL URINE OUTPUT OVER SEVERAL HOURS, RANGING FROM ZERO TO 20CC/HR, DR SHORE INFORMED OF THIS ACUTE FINDING, ORDERED 500CC NS BOLUS AT 2330 (11-29-20) TO BE GIVEN OVER 2 HOURS AND UPDATE IF URINE OUTPUT DOES NOT IMPROVE. CALLED DR. SHORE AT 0230 TO INFORM HIM THE PT'S UOP HAS NOT IMPROVED, HE ORDERED 40 MG IV LASIX ONE TIME, AND IF UOP DOES NOT IMPROVE HE WILL REASSESS IN THE MORNING
[2020-11-30 05:25] LABS: BASOPHILS 0.6 % (0-2); EOSINOPHILS 3.7 % (0-7); LYMPHOCYTES 14.9 % (15-50); MCH 25.5 pg (26.0-34.0); MCHC 32.9 g/dL (31.0-37.0); MCV 77.5 fL (80.0-100.0); MEAN PLATELET VOLUME 7.5 fL (7.4-10.4); MONOCYTES 7.4 % (2-11); NEUTROPHILS 73.4 % (40-80)
[2020-11-30 05:28] LABS: HEMATOCRIT 30.5 % (36.0-48.0); PLATELET COUNT 204 10x3/uL (130-400); RBC 3.94 10x6/uL (4.00-5.40); WBC 12.8 10x3/uL (4.8-10.8)
[2020-11-30 05:47] LABS: ALKALINE PHOSPHATASE 27 U/L (30-120); BILIRUBIN - TOTAL 0.48 mg/dL (0.2-1.3); CARBON DIOXIDE 26.6 mmol/L (21.0-32.0); CHLORIDE - SERUM 102 mmol/L (98-107); MAGNESIUM - SERUM 1.6 mg/dL (1.8-2.4); PHOSPHOROUS 2.5 mg/dL (2.5-4.9); SODIUM 137 mmol/L (136-145); UREA NITROGEN 7 mg/dL (7-18)
[2020-11-30 05:53] LABS: ALT (SGPT) 26 U/L (10-68); CALC OSMOLALITY 275 mosm/kg (275-300); CALCIUM 7.2 mg/dL (8.5-10.1); CREATININE - SERUM 0.7 mg/dL (0.6-1.3); GLUCOSE 175 mg/dL (74-106); PROTEIN - SERUM 5.6 g/dL (6.4-8.2); eGFR NON AFRICAN AMERICAN > 90 mL/min (90-120)
--- NOTE | 2020-11-30 07:00 | NUR ---
RECEIVED BEDSIDE REPORT AND ASSUMED CARE OF PATIENT. PATIENT SEDATED ON VENT, RESPONDS TO PAINFUL STIMULI, VSS. ETT - 8.0, 22 CM AT LIP, VENT SETTINGS ARE TV 450, PEEP 5, FIO2 60%, AC 14. BBS - CLEAR, DIMINISHED IN THE BASES. CM - 86, NSR, SPO2 - 98%. COLEY CATH IN PLACE WITH CLEAR YELLOW UOP NOTED. SCDS AND MILLIE HOSE IN PLACE. CT TO WALL SUCTION, NO AIR LEAK NOTED AND EPHRAIM DRAIN WITH SEROUS OUTPUT, BULB COMPRESSED, DRESSING C/D/I. RIGHT IJ CVL IN PLACE INFUSING PLASMOLYTE AT 30 ML/HR, NTG AT 25 MCG/MIN, INSULIN AT 1 UNIT/HR, MAGNESIUM SULFATE 2GM AT 50 ML/HR, PROPOFOL AT 50 MCG/KG/MIN. RIGHT ART LINE LEVELED AND ZEROED. HEAD TO TOE ASSESSMENT COMPLETED.
--- NOTE | 2020-11-30 08:13 | EC ---
PATIENT:DAVEY CORNELIUS DATE OF SERVICE: 11/24/20 SEX: F MEDICAL RECORD: [id number] DATE OF : 65 LOCATION:[place] [address] AGE OF PATIENT: 54 ADMISSION DATE: 11/24/20 REFERRING PHYSICIAN: INTERPRETING PHYSICIAN: EMERALD MONAHAN MD ECHOCARDIOGRAM REPORT ECHO CHARGES 4 ECHO COMPLETE Date: 11/24/20 CLINICAL DIAGNOSIS: DYSPNEA ECHOCARDIOGRAPHIC MEASUREMENTS (adult normal given) AC root (d.<3.7cm) 3.0 cm LV Septum d (<1.2 cm> 1.5 cm Valve Excursion 2.0 cm LV Septum (systole) 1.4 cm Left Atria (s.<4.0cm> 4.2 cm LVPW d(<1.2cm) 1.0 cm RV (d.<2.3cm) 3.5 cm LVPW (sytole) 1.4 cm LV diastole(<5.6CM) 4.2 cm MV E-F(>70mm/sec) cm LV systole 2.9 cm LVOT Diameter 2.0 cm MV exc.(>10mm) cm Est.ejection fraction (50-75%) 55 % DOPPLER: LVIT cm/sec A 0.70 cm/sec E 1.18 cm/sec LA cm/sec RVSP 30 mmHg LVOT 100 cm/sec AOP1/2T m/s Asc. Ao 151 cm/sec RVOT 80 cm/sec RA 4.1 cm/sec PA 96 cm/sec AV Gradient Peak 9 mmHg AV Mean 4 mmHg AV Area 1.9 cm MV Gradient Peak 4 mmHg MV Mean 2 mmHg MV Area cm COMMENTS: Oil Spot Washer: Emy AYALA Professor Of Music: 3 Dr. Ward TAPE# Pericardial Effusion DATE OF SERVICE: Adequate 2D, color flow imaging, spectral Doppler, and M-Mode. FINDINGS: No LVH. LV internal dimensions are normal. Wall motion is normal. EF is greater than or equal to 55%. Aortic valve is sclerotic. No evidence of stenosis by doppler interrogation. Left atrium minimally dilated at 4.2 cm. Mitral valve shows no prolapse. Trace MR. Right side is grossly normal. Mild TR. ECHOCARDIOGRAM REPORT [id number] DAVEY CORNELIUS TRANSINT:[id number] Voice Confirmation ID: [id number] DOCUMENT ID: [id number] EMERALD MONAHAN MD at 0813 CC: [id number] DICTATION DATE: 11/26/20 1102 INSTITUTION LIBRARIAN: 11/26/20 1501 ADM IN [place] [address] [place] [id number]
--- NOTE | 2020-11-30 08:13 | TEE ---
PATIENT:DAVEY CORNELIUS MEDICAL RECORD: [id number] LOCATION:[place] [address] AGE OF PATIENT: 54 ADMISSION DATE: 11/24/20 SEX: F REFERRING PHYSICIAN: INTERPRETING PHYSICIAN: EMERALD MONAHAN MD TRANSESOPHAGEAL ECHOCARDIOGRAM Date: 11/27/20 [place] CHARGE Y INDICATIONS: CABG PREMEDICATIONS: PATIENT'S RESPONSE PROCEDURE DOPPLER MEASUREMENTS: LVIT LA PA 96 RA 4.1 LVOT 100 RVOT 80 Asc. Ao 151 AV Gradient Peak 9 AV Mean 4 AV Area 1.9 MV Gradient Peak 4 MV Mean 2 MV Area INTERPRETATION: LVd: 3.8 cm LVs: 2.6 cm LA: 4.1 cm Doppler: 2-D: COLOR FLOW DOPPLER NORMAL SALINE STUDY: MISCELLANOUS: DIAGNOSIS: PLAN: [place] Glassware Replacer:Edith Gamez Gear Cutting Machine Operator: Kathy KIM COMMENTS: DATE OF SERVICE: 11/29/2020 PROCEDURE: Intraoperative [place]. FINDINGS: Preoperative, normal LV internal dimensions anterior wall does appear to be mildly hypokinetic with EF 45% to 50%. Aortic valve is tricuspid with TRANSESOPHAGEAL ECHOCARDIOGRAM REPORT [id number] DAVEY CORNELIUS good valve excursion. Left atrium appears normal. Mitral valve appears normal. Mild MR. Postoperatively, some improvement in anterior wall with EF probably lower limits of normal at 50%. Aortic valve is tricuspid with good valve excursion. Left atrium appears normal. Trivial MR. TRANSINT:[id number] Voice Confirmation ID: [id number] DOCUMENT ID: [id number] at 0813 CC: [id number] DICTATION DATE: 11/29/20 1052 TONGUE PRESSER: 11/29/20 1149 ADM IN [place] [address] [place] [address]
--- NOTE | 2020-11-30 08:13 | OP ---
PATIENT NAME: DAVEY CORNELIUS MEDICAL RECORD: [id number] :65 LOCATION:[facility] D.CV07 ADMISSION DATE:11/24/20 SURGEON: EMERALD MONAHAN MD DATE OF OPERATION: 11/26/2020 PROCEDURES: Left heart catheterization, selective coronary angiography, intraaortic balloon pump, right femoral artery approach. CATHETERS: 1. A 5-Dominican sheath. 2. A 5/4 right Stephany. 3. A 5/4 pig. The procedure was well tolerated. The patient returned to the viera, sheath removed. An intraaortic balloon pump was placed. FINDINGS: Left ventriculography in 30-degree [place] view shows some mild hypokinesis. Overall, LV function, however, lower limits of normal, mildly reduced at 40% to 45%. CORONARY ANATOMY: 1. Left main: Left main tapers to about 50% to 60% stenosis. This involves the LAD and the circumflex. In fact, the circumflex is totally occluded and fills via right to left collaterals. 2. LAD has severe diffuse proximal disease involving the first diagonal. First diagonal itself fill via radial branch for bypass grafting. The LAD itself is a good distal target. 3. Circumflex fills via right to left collaterals and appears to be a good target. 4. Right coronary artery is dominant and free of disease, giving rise to right to left collaterals and circ. IMPRESSION: Multivessel coronary artery disease including left main disease. I discussed with Dr. Jaquez. A decision was made to place intraaortic balloon pump electively with early coronary bypass grafting given left main disease. After a 5-Dominican sheath was exchanged for a 6-Dominican sheath, under fluoroscopic guidance, the intraaortic balloon pump was placed in the level of the christiane without difficulty. The augmentation was begun with inflations of the balloon at 1:1 with good fluoroscopic expansion of the balloon. IMPRESSION: Successful intraaortic balloon pump placement for critical left main disease. The patient will undergo CABG in the near future. Discussed with Dr. Jaquez in detail. TRANSINT:[id number] Voice Confirmation ID: [id number] DOCUMENT ID: [id number] OPERATIVE REPORT [id number] DAVEY CORNELIUS EMERALD MONAHAN MD at 1416 CC: [id number] DICTATION DATE: 11/26/20 1037 DATA ANALYTICS ANALYST: 11/26/20 1448 ADM IN [facility] [address] [place] [address]
--- NOTE | 2020-11-30 09:00 | NUR ---
MORNING MEDS PER MAR, VENT FIO2 AT 40%. PATIENT TURNED AND REPOSITIONED IN BED.
--- NOTE | 2020-11-30 10:36 | NUR ---
DR. SALVADOR AT ROOM UPDATED AND EXAMINES PATIENT. ORDERS FOR OGT/NGT PLACEMENT AND TUBE FEEDING PULMOCARE AT 20 ML/HR (GOAL 30 ML/HR) WITH 100 ML/4H WATER FLUSHES. UA/CULTURE OBTAINED AND SENT TO LAB.
--- NOTE | 2020-11-30 11:19 | NUR ---
OGT PLACED PER ORDER, XRAY COMPLETED. REASSESSMENT COMPLETED. VSS. PATEINT TURNED AND REPOSITONED IN BED.
--- NOTE | 2020-11-30 11:47 | NUR ---
UPDATED PATIENTS DAUGHTER ON PATIENT AND ANSWERED QUESTIONS.
[2020-11-30 11:57] LABS: AMORPHOUS SEDIMENT <1+ LPF (NONE SEEN); BACTERIA FEW HPF (NONE SEEN); BILIRUBIN NEGATIVE (NEGATIVE); KETONE NEGATIVE (NEGATIVE); NITRITE NEGATIVE (NEGATIVE); SQUAMOUS EPITHELIAL OCC HPF (0-4); UROBILINOGEN NORMAL mg/dL (< 2); WHITE CELLS - URINE OCC HPF (0-4)
--- NOTE | 2020-11-30 15:10 | NUR ---
REASSESSMENT COMPLETED. VSS. PATIENT TURNED AND REPOSITIONED IN BED.
--- NOTE | 2020-11-30 15:47 | NUR ---
PROPOFOL DECREASED FOR SIMV TRIAL.
--- NOTE | 2020-11-30 15:53 | NUR ---
SPOKE TO PATIENTS SONVERO, LAZARUS AND MARISSA ANSWERED.
--- NOTE | 2020-11-30 16:35 | NUR ---
PATIENT TOLERATED SIMV AND SHORT TRIAL ON CPAP PRIOR TO RR INCREASING INTO THE 30S, PLACED BACK ON RATE AND PROPOFOL RESTARTED AT 40 MCG/KG/MIN.
--- NOTE | 2020-11-30 17:16 | NUR ---
SPOKE TO DR. SHORE, ORDERS SLIDING SCALE INTERMEDIATE INSULIN REGULAR FOR PATIENT Q6H, HOWEVER, IF FSBS IS GREATER THAN 200 HE WANTS THE INSULIN GTT TO BE STARTED.
[2020-12-01] VITALS (51 sets, daily range): BP systolic 105–166; BP diastolic 60–94
[2020-12-01 04:58] LABS: HEMOGLOBIN 9.4 g/dL (12-16); MCH 25.2 pg (26.0-34.0); MCHC 32.5 g/dL (31.0-37.0); MCV 77.6 fL (80.0-100.0); MEAN PLATELET VOLUME 7.6 fL (7.4-10.4); RBC 3.74 10x6/uL (4.00-5.40); RDW 20.7 % (11.5-14.5)
[2020-12-01 05:06] LABS: WBC 8.3 10x3/uL (4.8-10.8)
[2020-12-01 05:19] LABS: ALBUMIN 1.9 g/dL (3.4-5.0); ALKALINE PHOSPHATASE 32 U/L (30-120); ALT (SGPT) 22 U/L (10-68); BILIRUBIN - TOTAL 0.35 mg/dL (0.2-1.3); CALC OSMOLALITY 279 mosm/kg (275-300); CALCIUM 7.7 mg/dL (8.5-10.1); CARBON DIOXIDE 28.2 mmol/L (21.0-32.0); CHLORIDE - SERUM 102 mmol/L (98-107); CREATININE - SERUM 0.6 mg/dL (0.6-1.3); GLUCOSE 180 mg/dL (74-106); POTASSIUM - SERUM 3.8 mmol/L (3.5-5.1); PROTEIN - SERUM 5.3 g/dL (6.4-8.2); SODIUM 138 mmol/L (136-145); eGFR NON AFRICAN AMERICAN > 90 mL/min (90-120)
[2020-12-01 05:26] LABS: UREA NITROGEN 9 mg/dL (7-18)
--- NOTE | 2020-12-01 07:25 | NUR ---
NO RESIDUAL FROM OG TUBE. TUBE FEEDINGS INCREASED TO 20ML/HR. WILL CONTINUE TO MONITOR.
--- NOTE | 2020-12-01 09:30 | NUR ---
SUBSTERNAL DRESSING CHANGED AT THIS TIME. CT REMAIN IN PLACE. TPM WIRES SECURED. COVERED WITH 4X4 AND TEGADERM DRESSING. RIJ CVL DRESSING CHANGED PER PROTOCOL. STERILE TECHNIQUE USED. PT RESTING COMFORTABLY. WILL CONTINUE TO MONITOR.
--- NOTE | 2020-12-01 10:34 | NUR ---
SEDATION DECREASED FROM 50 TO 35MCG/KG/MIN PER DR. SALVADOR'S ORDER.
--- NOTE | 2020-12-01 11:03 | NUR ---
SEDATION TURNED DOWN TO 15MCG/KG/MIN PER DR. HOLT ORDER. PT WAKING UP AND FOLLOWING SIMPLE COMMANDS.
--- NOTE | 2020-12-01 11:44 | NUR ---
SEDATION CONTINUES AT 15MCG/KG/MIN. PT AWAKE AND FOLLOWS COMMANDS. BP CUFF PRESSURE 150/76, ELLE PRESSURE 116/88. DR. SHORE NOTIFIED.
--- NOTE | 2020-12-01 12:08 | NUR ---
SPOKE WITH KAEL RN WITH DR. SHORE. WANTS BP CHECKED ON BOTH ARMS. RA BP 166/86, LA BP 151/81. KAEL NOTIFIED. WILL LET DR. SHORE KNOW.
--- NOTE | 2020-12-01 12:32 | NUR ---
Nutrition Follow-up: POD 4 CABG. Intubated/sedated. TF running @ 20 mL/hr this AM. Discussed in IDT rounds; plans to wean sedation. Noted Diprivan decreased to 7.7 mL/hr; provides 203 kcal/day. Diet: Pulmocare - goal rate 30 mL/hr + H2O flushes 50 mL q 4 hrs Wt: 201# (12/01) Labs noted: Glu 180, Ca 7.7, Alb 1.9 Meds noted: Humulin, Diprivan, Senokot, Protonix -Increase TF to goal rate as tolerated. -Monitor wt. -RD follow-up: 12/03
[2020-12-02] VITALS (77 sets, daily range): BP systolic 105–172; BP diastolic 57–98
[2020-12-02 04:45] LABS: BASOPHILS 0.6 % (0-2); HEMATOCRIT 28.9 % (36.0-48.0); HEMOGLOBIN 9.5 g/dL (12-16); LYMPHOCYTES 21.5 % (15-50); MCH 25.1 pg (26.0-34.0); MCHC 32.8 g/dL (31.0-37.0); MCV 76.5 fL (80.0-100.0); MEAN PLATELET VOLUME 7.3 fL (7.4-10.4); MONOCYTES 10.6 % (2-11); NEUTROPHILS 63.3 % (40-80); PLATELET COUNT 245 10x3/uL (130-400); RBC 3.78 10x6/uL (4.00-5.40); RDW 20.6 % (11.5-14.5); WBC 7.9 10x3/uL (4.8-10.8)
[2020-12-02 05:08] LABS: ALBUMIN 1.7 g/dL (3.4-5.0); ALKALINE PHOSPHATASE 50 U/L (30-120); ALT (SGPT) 19 U/L (10-68); CALC OSMOLALITY 281 mosm/kg (275-300); CALCIUM 7.7 mg/dL (8.5-10.1); CARBON DIOXIDE 29.4 mmol/L (21.0-32.0); CHLORIDE - SERUM 105 mmol/L (98-107); CREATININE - SERUM 0.6 mg/dL (0.6-1.3); GLUCOSE 189 mg/dL (74-106); MAGNESIUM - SERUM 1.5 mg/dL (1.8-2.4); POTASSIUM - SERUM 3.4 mmol/L (3.5-5.1); PROTEIN - SERUM 5.3 g/dL (6.4-8.2); SODIUM 140 mmol/L (136-145); UREA NITROGEN 8 mg/dL (7-18); eGFR NON AFRICAN AMERICAN > 90 mL/min (90-120)
--- NOTE | 2020-12-02 07:58 | NUR ---
PT ON CPAP TRIAL. DR. SHORE IN UNIT. INFORMED OF ELEVATED BP 159/79. OKAY TO GIVE LOPRESSOR EARLY. OKAY TO GIVE AN ADDITIONAL 2.5MG LOPRESSOR IF NEEDED PER DR. SHORE.N
--- NOTE | 2020-12-02 10:30 | NUR ---
SPOKE WITH DR. HUMPHREY REGARDING BLOOD GLUCOSE. PT CURRENTLY ON 1UNIT/HR INSULIN DRIP. NO NEW ORDERS RECEIVED.
--- NOTE | 2020-12-02 10:31 | NUR ---
TUBE FEEDING TUBING CHANGED. INCREASED TUBE FEEDS FROM 30ML/HR TO 40ML/HR.
--- NOTE | 2020-12-02 11:33 | NUR ---
CONSENT FOR BRONCHOSCOPY ACQUIRED FROM ASHLEIGH CORNELIUS PT'S SON.
[2020-12-03] VITALS (57 sets, daily range): BP systolic 80–173; BP diastolic 45–90
[2020-12-03 04:57] LABS: EOSINOPHILS 3.9 % (0-7); HEMATOCRIT 28.6 % (36.0-48.0); HEMOGLOBIN 9.5 g/dL (12-16); LYMPHOCYTES 22.9 % (15-50); MCH 25.3 pg (26.0-34.0); MCHC 33.2 g/dL (31.0-37.0); MCV 76.1 fL (80.0-100.0); MEAN PLATELET VOLUME 7.1 fL (7.4-10.4); MONOCYTES 9.2 % (2-11); PLATELET COUNT 271 10x3/uL (130-400); RBC 3.76 10x6/uL (4.00-5.40); RDW 20.9 % (11.5-14.5); WBC 8.1 10x3/uL (4.8-10.8)
[2020-12-03 06:03] LABS: ALBUMIN 1.8 g/dL (3.4-5.0); ALKALINE PHOSPHATASE 55 U/L (30-120); ALT (SGPT) 16 U/L (10-68); BILIRUBIN - TOTAL 0.28 mg/dL (0.2-1.3); CALC OSMOLALITY 281 mosm/kg (275-300); CALCIUM 8.1 mg/dL (8.5-10.1); CARBON DIOXIDE 28.4 mmol/L (21.0-32.0); CHLORIDE - SERUM 105 mmol/L (98-107); CREATININE - SERUM 0.6 mg/dL (0.6-1.3); GLUCOSE 200 mg/dL (74-106); POTASSIUM - SERUM 3.7 mmol/L (3.5-5.1); PROTEIN - SERUM 5.5 g/dL (6.4-8.2); SODIUM 139 mmol/L (136-145); UREA NITROGEN 8 mg/dL (7-18); eGFR NON AFRICAN AMERICAN > 90 mL/min (90-120)
--- NOTE | 2020-12-03 07:45 | NUR ---
SHIFT REPORT RECEIV[place] [address]/40%/5. RIGHT IJ WITH PLASMOLYTE AT 30ML/HR, PROPOFOL AT 70MCG/KG/MIN, INSULIN AT 2UNIT/HR. RIGHT RADIAL ELLE IN PLACE. MIDSTERNAL INCISION C/D/I. SUBTERNAL CT TO SUCTION, NO AIR LEAK NOTED. EPHRAIM DRAIN AND TPM WIRES IN PLACE. RLE AND LUE HARVEST SITES LIP OF SHANK CUTTER. OGT WITH PULMOCARE AT 40ML/HR WITH 100ML H2O FLUSH Q 4HR. SAFETY MEASURES IN PLACE. WILL WEAN SEDATION FOR CPAP TRIAL.
--- NOTE | 2020-12-03 08:51 | NUR ---
ON CPAP TRIAL. PROPOFOL DOWN TO 20MCG/KG/MIN. PT CALM AND COOPERATIVE. NO RESIDUAL NOTED THIS MORNING. TOLERATING TUBE FEEDS. LIQUID STOOL NOTED TODAY.
--- NOTE | 2020-12-03 10:14 | NUR ---
SPOKE WITH DR. HUMPHREY REGARDING BLOOD GLUCOSE CONTROL. PT CURRENTLY ON 3UNITS/HR INSULIN IV. WANTS TO START SLIDING SCALE BACK AND GET PT OFF DRIP.
--- NOTE | 2020-12-03 10:57 | NUR ---
Nutrition Follow-up: POD 6 CABG. Intubated/sedated. TF running @ 40 mL/hr. Receiving Diprivan @ 10.2 mL/hr; provides 269 kcal/day. Nursing reports hypoactive BS with diarrhea. Diet: Pulmocare @ 40 mL/hr Wt: 195# (12/03) Labs noted: Glu 200, Ca 8.1, Alb 1.8, K+ 3.7 Meds noted: KCl, Humulin, Diprivan, Senokot, Protonix -Continue TF as tolerated. -RD will follow up within 3-4 days.
[2020-12-03 12:11] LABS: FUNGUS STAIN Final report (())
--- NOTE | 2020-12-03 12:52 | NUR ---
CALL RECEIVED FROM ASHLEIGH CORNELIUS, PT'S SON. PASSCODE VIRIFIED. WAS TOLD PT LASTED ABOUT 3HRS ON CPAP TRIAL THIS MORNING. WILL DUE CPAP TRIAL AGAIN THIS AFTERNOON.
--- NOTE | 2020-12-03 14:32 | NUR ---
ON CPAP TRIAL. PROPOFOL DOWN TO 15MCG/KG/MIN, FENTANYL AT 75MCG/HR. WILL CONTINUE TO MONITOR.
--- NOTE | 2020-12-03 15:32 | NUR ---
PT OFF CPAP TRIAL. AGITATED, SEDATION INCREASED BACK UP TO 30MCG/KG/MIN.
[2020-12-03 18:08] LABS: ACID FAST SMEAR Negative (()); AFB SPECIMEN PROCESSING Concentration (())
[2020-12-04] VITALS (39 sets, daily range): BP systolic 86–193; BP diastolic 51–92
[2020-12-04 05:50] LABS: HEMATOCRIT 29.6 % (36.0-48.0); HEMOGLOBIN 9.8 g/dL (12-16); MCH 25.2 pg (26.0-34.0); MCHC 33.1 g/dL (31.0-37.0); MCV 76.2 fL (80.0-100.0); MEAN PLATELET VOLUME 7.6 fL (7.4-10.4); RBC 3.88 10x6/uL (4.00-5.40); RDW 20.8 % (11.5-14.5); WBC 8.6 10x3/uL (4.8-10.8)
[2020-12-04 06:01] LABS: CREATININE - SERUM 0.5 mg/dL (0.6-1.3); MAGNESIUM - SERUM 1.6 mg/dL (1.8-2.4); PHOSPHOROUS 3.8 mg/dL (2.5-4.9)
--- NOTE | 2020-12-04 07:15 | NUR ---
REPORT RECEIVED. ASSESSMENT COMPLETE PER FLOW SHEET. VSS. PT REPOSTIIONED FOR COMFORT. NEEDS MET.
--- NOTE | 2020-12-04 08:30 | NUR ---
PT SWITCHED TO CPAP AT THIS TIME PER KAYLYN RT. PT TOLERATING WELL.
--- NOTE | 2020-12-04 10:43 | NUR ---
DR SHORE AT BEDSIDE GIVEN UDPATE. R A LINE REMOVED PER ORDER.
--- NOTE | 2020-12-04 19:00 | NUR ---
REPORT RECEIVED. RECEIVED PATIENT IN BED AWAKE AND ALERT WITH NO DISTRESS OBSERVED. CALL LIGHT IN REACH AND ABLE TO UTILIZE TO MAKE NEEDS KNOWN. ASSISTED WITH REPOSITIONING FOR COMFORT.
[2020-12-05] VITALS (25 sets, daily range): BP systolic 93–165; BP diastolic 67–98
[2020-12-05 05:15] LABS: HEMATOCRIT 32.7 % (36.0-48.0); HEMOGLOBIN 10.3 g/dL (12-16); MCH 24.5 pg (26.0-34.0); MCHC 31.5 g/dL (31.0-37.0); MCV 77.7 fL (80.0-100.0); MEAN PLATELET VOLUME 9.6 fL (7.4-10.4); RBC 4.21 10x6/uL (4.00-5.40); RDW 18.3 % (11.5-14.5)
[2020-12-05 05:16] LABS: WBC 11.2 10x3/uL (4.8-10.8)
[2020-12-05 08:27] LABS: ALKALINE PHOSPHATASE 34 U/L (30-120); ALT (SGPT) 24 U/L (10-68); BILIRUBIN - TOTAL 0.51 mg/dL (0.2-1.3); CALC OSMOLALITY 271 mosm/kg (275-300); CALCIUM 8.3 mg/dL (8.5-10.1); CARBON DIOXIDE 25.9 mmol/L (21.0-32.0); CHLORIDE - SERUM 99 mmol/L (98-107); CREATININE - SERUM 0.5 mg/dL (0.6-1.3); GLUCOSE 175 mg/dL (74-106); POTASSIUM - SERUM 4.1 mmol/L (3.5-5.1); PROTEIN - SERUM 6.3 g/dL (6.4-8.2); SODIUM 135 mmol/L (136-145); UREA NITROGEN 7 mg/dL (7-18); eGFR NON AFRICAN AMERICAN > 90 mL/min (90-120)
--- NOTE | 2020-12-05 14:21 | NUR ---
1345: DR. SHORE HERE. MEDISTINAL CHEST TUBES DC'D. SITE DRESSED WITH 4X4 AND TEGADERM.
[2020-12-06] VITALS (22 sets, daily range): BP systolic 83–147; BP diastolic 46–95
[2020-12-06 08:20] LABS: HEMOGLOBIN 10.3 g/dL (12-16); MCH 25.1 pg (26.0-34.0); MCHC 33.4 g/dL (31.0-37.0); MEAN PLATELET VOLUME 8.2 fL (7.4-10.4); RBC 4.11 10x6/uL (4.00-5.40); RDW 20.4 % (11.5-14.5); WBC 10.5 10x3/uL (4.8-10.8)
[2020-12-06 08:25] LABS: MCV 75.3 fL (80.0-100.0)
[2020-12-06 08:28] LABS: CALC OSMOLALITY 275 mosm/kg (275-300); CALCIUM 8.5 mg/dL (8.5-10.1); CARBON DIOXIDE 25.5 mmol/L (21.0-32.0); CHLORIDE - SERUM 101 mmol/L (98-107); CREATININE - SERUM 0.5 mg/dL (0.6-1.3); GLUCOSE 149 mg/dL (74-106); POTASSIUM - SERUM 4.3 mmol/L (3.5-5.1); SODIUM 137 mmol/L (136-145); eGFR NON AFRICAN AMERICAN > 90 mL/min (90-120)
[2020-12-06 08:29] LABS: UREA NITROGEN 11 mg/dL (7-18)
--- NOTE | 2020-12-06 12:17 | NUR ---
Nutrition Reassessment/Follow-up: Extubated 12/04. Pt reports good appetite/PO intake. ST following; receiving mec soft diet. Diet: Diabetic, Mech Soft with Thin Liquids WT: 187# (12/06)Adj BW: 133# Last BM: 12/03 Labs noted: Glu 149 Meds noted: Protonix, Glucotrol, Glucophage, Humulin, MagOx, Colace, Senokot, Florajen, electrolyte protocol Est needs: 9249-9993 kcal/day (25-30 kcal/kg adj BW) 60-75 g protein/day (1-1.2 g/kg adj BW) 4706-0524 mL fluid/day (1 mL/kcal) or per MD Nutrition Diagnosis: -Altered nutrition-related lab values R/T DM AEB elev Glu. Nutrition Goals: -PO intake >=75% avg of meals/snacks. -Meet est fluid needs without fluid overload. -Stable dry wt. -Glu at or near normal. Nutrition Intervention: -Encourage PO intake and honor food preferences within diet restrictions. -Monitor wt. -RD will follow up within 2-3 days.
[2020-12-07] VITALS (9 sets, daily range): BP systolic 85–104; BP diastolic 39–72
--- NOTE | 2020-12-07 07:10 | NUR ---
REPORT RECEIVED FROM OFF GOING NURSE AND PATIENT CARE ASSUMED. PATIENT LAYING IN BED ON BACK WITH EYES CLOSED AND BREATHING EVENLY. CHECKED ALL LINES, TUBES, DRAINS AND COLEY. ALL PATENT COLEY DRAINING TO GRAVITY CLEAR YELLOW URINE TO COLLECTION BAG. VSS. WILL CONTINUE WITH PLAN OF CRE. SR UP X 2 BED IN LOW POSITION AND CALL LIGHT IN REACH.
--- NOTE | 2020-12-07 11:00 | NUR ---
REPORT CALL TO LUZ MEJIAS.
--- NOTE | 2020-12-07 12:00 | NUR ---
PATIENT IS STABLE AND VSS. PATIENT DENIES ANY NEEDS OR PAIN. PATIENT TRX VIA WC ACCOMPANIED BY HOSPITAL PERSONNEL.
--- NOTE | 2020-12-07 12:23 | NUR ---
PT TO ROOM FROM ICU. DRESSING TO RIGHT NECK BULKY BUT CDI FROM PRIOR LINE REMOVAL. COLEY NOTED WITH DARK CLOUDY URINE. LUNCH TRAY SET UP AND LAB IN ROOM FOR DRAW.
[2020-12-07 12:51] LABS: ALBUMIN 2.3 g/dL (3.4-5.0); ANION GAP 15.3 mmol/L (8-16); BILIRUBIN - TOTAL 0.31 mg/dL (0.2-1.3); CALCIUM 8.5 mg/dL (8.5-10.1); CARBON DIOXIDE 23.9 mmol/L (21.0-32.0); POTASSIUM - SERUM 4.2 mmol/L (3.5-5.1); PROTEIN - SERUM 6.8 g/dL (6.4-8.2)
[2020-12-07 12:52] LABS: CREATININE - SERUM 0.9 mg/dL (0.6-1.3)
[2020-12-07 14:30] LABS: BASOPHILS 0.6 % (0-2); LYMPHOCYTES 10.4 % (15-50); MCHC 29.6 g/dL (31.0-37.0); MEAN PLATELET VOLUME 7.4 fL (7.4-10.4); MONOCYTES 4.4 % (2-11); NEUTROPHILS 83.6 % (40-80); PLATELET COUNT 384 10x3/uL (130-400); RBC 5.45 10x6/uL (4.00-5.40); RDW 20.9 % (11.5-14.5)
[2020-12-07 14:31] LABS: HEMATOCRIT 44.2 % (36.0-48.0); HEMOGLOBIN 13.1 g/dL (12-16); MCV 81.1 fL (80.0-100.0)
--- NOTE | 2020-12-07 14:55 | MORECARE ---
CASE MANAGEMENT DISCHARGE SUMMARY PATIENT: DAVEY CORNELIUS UNIT: [id number] ADM DATE: 11/24/20 AGE: 54 : 65 SEX: F ROOM/BED: D.6733 AUTHOR: CARLINE SEVILLA PHYSICIAN: REFERRING PHYSICIAN: MOSHE GANDHI MD DATE OF SERVICE: 12/07/20 Case Management Discharge Planning Summary COMMENTS ENTERED DATE: 12/07/20 14:52 CT COMMENT TYPE: Discharge Planning REVIEWER: Vazquez Mcclendon CM met with patient to complete DC plan and to evaluate needs. Patient lives independently with her mother, Edda Hinojosa, . Patient stated that her home is safe and has electricity and running water. Patient stated that before this hospitalization she was able to enter and move about her home without difficulty. The patient stated that she is unsure at this time if her mobility will be a problem. Patient stated she has several mobility aids left at the home from her father. Patient stated that she has no problems paying for medications and she fills her medications at [facility] pharmacy. Patient stated that her primary care physician is Dr. Patricia Julio. At discharge, the patient plans to return home and feels this is a safe discharge. CM discussed availability of home health, rehab services, and medical equipment. Patient declined HHS, SNF, and IPR at this time but welcomes a conversation about home health at a later date. Patient would like [facility] for any DME needs. Patient voiced no other needs at this time and is satisfied with DC plan. Transportation provider at discharge will be with her mother, Edda. DC IMM delivered, explained, signed by the patient, and placed in chart. Signed form also left with the patient. CM will continue to follow and will assist as needed with dc plans/needs. DCP REVIEW SUMMARY ANTICIPATED D/C DATE: EXPECTED LOS : CASE STATUS: DCP Initiated INITIAL REVIEW: 11/24/2020 INITIAL REVIEWER: Vazquez Mcclendon FINAL DISCHARGE DISPOSITION: : FINAL REVIEWER: FINAL REVIEW DATE: DCP Focus Questions & Answers DCP Evaluation QUESTION: ANSWER Patient gives permission to discuss discharge plans with: (name, relationship and number) : mother, Edda Hinojosa, Patient's ability to cope with chronic illness : d. No chronic illness Patient's current cognitive status: : *Oriented to person, place, situation, time and present Family / Caregiver's ability to cope with chronic illness: : a. Adequate (ability to meet patient's medical needs, ensures patient attends medical appts.) Patient and/or caregiver agree upon recommended discharge plan? : Yes Physical Status: : Independent with ADL's Family / Caregiver's ability to cope with chronic illness: : a. Adequate (ability to meet patient's medical needs, ensures patient attends medical appts.) Functional screen assessment: : Basic needs can adequately be met by self Does the patient have the ability to pay for or attain post discharge needs / services? : Yes Living Arrangements: : Home with Extended Family Is there a likelihood that the patient will require additional services to return to the preadmission environment? : Yes Equipment needed for post hospitalization: : None Baseline cognitive status: : *Oriented to person, place, situation, time and present Patient with capacity for self-care or can be cared for in same environment as prior to hospitalization? : Yes Physical environment modification needed / anticipated for discharge: : No Medication Management: : Patient states can afford medications Medication Management: : Patient states can read and understand medication labels Pharmacy name(s): : [facility] pharmacy. Does Patient have transportation to get home and to follow-up medical appointments when discharged from the hospital? : Yes Would patient like to participate in any Care Coordination programs (if applicable): : Not applicable Does the patient have electricity at home? : Yes Does the patient have running water in their house? : Yes Equipment in use: : Cane - Single Leg Mental health screen: : No mental health history DCP Re-evaluation QUESTION: ANSWER Would patient like to participate in any Care Coordination programs (if applicable): : Not applicable PATIENT: DAVEY CORNELIUS ENCOUNTER: [id number] MEDICAL RECORD#: [id number] ADMISSION DATE: 11/24/2020 DISCHARGE DATE: ATTENDING MD: JOSE MUNOZ : AGE: 54 MARITAL STATUS: D DC PLAN ID: [id number] FACILITY: [facility] PRINTED ON: 12/07/20 14:55 CT All edits/amendments must be made on the electronic document DICTATION DATE: 12/07/201454 TUBE COREMAKER: ERENDIRA 12/07/201454 RPT#: [id number] DC DATE: STATUS: ADM IN [facility] [address] [place] [address] END OF REPORT
--- NOTE | 2020-12-07 16:49 | NUR ---
PT REQUESTING [facility] TO BE OUT. JOSE DELGADO CALLED AND STATES OK. PT INSTRUCTED TO CALL WHEN NEEDS TO VOID.
--- NOTE | 2020-12-07 19:23 | NUR ---
RECIEVED LAYING IN BED WITH EYES OPEN AND TV ON. ALERT AND ORIENTED X4. REQUIRES ASSIST TO AMBULATE. DENIES ANY NEEDS.
[2020-12-08] VITALS: BP 97/63
[2020-12-08 04:00] VITALS: BP 122/57
[2020-12-08 06:38] LABS: HEMATOCRIT 35.4 % (36.0-48.0); HEMOGLOBIN 11.3 g/dL (12-16); MCH 24.3 pg (26.0-34.0); MCHC 31.9 g/dL (31.0-37.0); MEAN PLATELET VOLUME 7.3 fL (7.4-10.4); RBC 4.65 10x6/uL (4.00-5.40); RDW 20.6 % (11.5-14.5); WBC 11.5 10x3/uL (4.8-10.8)
[2020-12-08 06:40] LABS: MCV 76.2 fL (80.0-100.0); PLATELET COUNT 558 10x3/uL (130-400)
[2020-12-08 07:10] LABS: ALBUMIN 2.6 g/dL (3.4-5.0); BILIRUBIN - TOTAL 0.35 mg/dL (0.2-1.3); CALCIUM 8.6 mg/dL (8.5-10.1); CARBON DIOXIDE 27.6 mmol/L (21.0-32.0); PROTEIN - SERUM 7.2 g/dL (6.4-8.2)
[2020-12-08 07:13] LABS: ANION GAP 13.8 mmol/L (8-16); POTASSIUM - SERUM 3.4 mmol/L (3.5-5.1)
[2020-12-08 08:10] VITALS: BP 98/60
--- NOTE | 2020-12-08 10:01 | NUR ---
UP WITH PT ASSIST. IN CHAIR WITH CALL LIGHT IN REACH. WILL CONT. PLAN OF CARE.
[2020-12-08 11:40] VITALS: BP 112/68
--- NOTE | 2020-12-08 12:34 | NUR ---
Nutrition Follow-up: POD 11 CABG. Good/fair PO intake. ST following. Diet: Diabetic, Mech Soft with Thin Liquids PO intake: 50-100% Wt: 186# (12/07); 192# (11/24) Labs noted: K+ 3.4, Glu 147, Alb 2.6 Meds noted: Protonix, Glucotrol, Glucophage, Humulin, MagOx, Colace, Senokot, Florajen -Encourage PO intake and honor food preferences within diet restrictions. -Monitor wt. -RD will follow up within 5-6 days.
[2020-12-08 13:36] LABS: EOSINOPHILS 4 % (0-7); LYMPHOCYTES 17 % (15-50); MONOCYTES 13 % (2-11); NEUTROPHILS 66 % (40-80); PLATELET ESTIMATE INCREASED
[2020-12-08 16:12] VITALS: BP 118/67
--- NOTE | 2020-12-08 16:58 | NUR ---
DRSG CHANGED TO EDD DRAIN SITE.
--- NOTE | 2020-12-08 19:33 | NUR ---
RECIEVED LAYING IN BED WITH EYES CLOSED. AROUSED WITH VERBAL STIMULI. ORIENTED X4. UP AD ASHLEY. SCABBED OVER INCISION TO LT ARM AND CHEST. DSG TO LL ABD . DENIES ANY NEEDS AT THIS TIME.
[2020-12-08 20:00] VITALS: BP 103/69
[2020-12-09] VITALS: BP 116/65
[2020-12-09 04:00] VITALS: BP 139/78
[2020-12-09 06:25] LABS: ALBUMIN 2.8 g/dL (3.4-5.0); BILIRUBIN - TOTAL 0.24 mg/dL (0.2-1.3); CALCIUM 9.1 mg/dL (8.5-10.1); CARBON DIOXIDE 28.6 mmol/L (21.0-32.0); CREATININE - SERUM 0.9 mg/dL (0.6-1.3); MAGNESIUM - SERUM 1.6 mg/dL (1.8-2.4); POTASSIUM - SERUM 3.6 mmol/L (3.5-5.1); PROTEIN - SERUM 7.2 g/dL (6.4-8.2)
[2020-12-09 07:51] VITALS: BP 114/61
[2020-12-09 11:41] VITALS: BP 144/75
[2020-12-09 14:11] LABS: FUNGUS CULTURE RESULT 1 Candida parapsilosis (()); FUNGUS MYCOLOGY CULTURE Preliminary report (())
[2020-12-09 16:08] VITALS: BP 132/68
--- NOTE | 2020-12-09 19:30 | NUR ---
RECIEVED UP IN BED WITH EYES OPEN AND SON AT BEDSIDE. ALERT AND ORIENTED X4. UP AD ASHLEY. INCISION TO LEFT ARM , RIGHT LEG AND CHEST SCABBED OVER. NO REDNESS OR DRAINAGE OBSERVED, DSG TO LUQ CDI. DENIES ANY NEEDS AT THIS TIME.
[2020-12-09 20:22] VITALS: BP 154/77
--- NOTE | 2020-12-09 23:24 | NUR ---
SPOKE WITH [facility] WITH NEW ORDERS FOR FSBS ACHS. PT AWARE.
[2020-12-10 01:38] VITALS: BP 123/67
[2020-12-10 06:37] VITALS: BP 125/53
[2020-12-10 07:12] LABS: ALBUMIN 2.7 g/dL (3.4-5.0); ANION GAP 14.8 mmol/L (8-16); BILIRUBIN - TOTAL 0.25 mg/dL (0.2-1.3); CALCIUM 9.2 mg/dL (8.5-10.1); CARBON DIOXIDE 25.6 mmol/L (21.0-32.0); CREATININE - SERUM 0.9 mg/dL (0.6-1.3); MAGNESIUM - SERUM 1.4 mg/dL (1.8-2.4); POTASSIUM - SERUM 4.4 mmol/L (3.5-5.1); PROTEIN - SERUM 6.3 g/dL (6.4-8.2)
[2020-12-10] MEDS ORDERED: GLUCOPHAGE500 MG PO (11:24)
[2020-12-10] MEDS ORDERED: LOW DOSE ASPIRI81 M1 PO (11:24)
[2020-12-10] MEDS ORDERED: LOPRESSOR25 MG PO (11:24)
--- NOTE | 2020-12-13 14:30 | MORECARE ---
CASE MANAGEMENT DISCHARGE SUMMARY PATIENT: DAVEY CORNELIUS UNIT: [id number] ADM DATE: 11/24/20 AGE: 54 : 65 SEX: F ROOM/BED: D.8987 AUTHOR: CARLINE SEVILLA PHYSICIAN: REFERRING PHYSICIAN: MOSHE GANDHI MD DATE OF SERVICE: 12/13/20 Case Management Discharge Planning Summary COMMENTS ENTERED DATE: 12/07/20 14:52 CT COMMENT TYPE: Discharge Planning REVIEWER: Vazquez Mcclendon CM met with patient to complete DC plan and to evaluate needs. Patient lives independently with her mother, Edda Hinojosa, . Patient stated that her home is safe and has electricity and running water. Patient stated that before this hospitalization she was able to enter and move about her home without difficulty. The patient stated that she is unsure at this time if her mobility will be a problem. Patient stated she has several mobility aids left at the home from her father. Patient stated that she has no problems paying for medications and she fills her medications at [facility] pharmacy. Patient stated that her primary care physician is Dr. Patricia Julio. At discharge, the patient plans to return home and feels this is a safe discharge. CM discussed availability of home health, rehab services, and medical equipment. Patient declined HHS, SNF, and IPR at this time but welcomes a conversation about home health at a later date. Patient would like [facility] for any DME needs. Patient voiced no other needs at this time and is satisfied with DC plan. Transportation provider at discharge will be with her mother, Edda. DC IMM delivered, explained, signed by the patient, and placed in chart. Signed form also left with the patient. CM will continue to follow and will assist as needed with dc plans/needs. DCP REVIEW SUMMARY ANTICIPATED D/C DATE: EXPECTED LOS : CASE STATUS: DCP Initiated INITIAL REVIEW: 11/24/2020 INITIAL REVIEWER: Vazquez Mcclendon FINAL DISCHARGE DISPOSITION: : FINAL REVIEWER: FINAL REVIEW DATE: DCP Focus Questions & Answers DCP Evaluation QUESTION: ANSWER Patient gives permission to discuss discharge plans with: (name, relationship and number) : mother, Edda Hinojosa, Patient's ability to cope with chronic illness : d. No chronic illness Patient's current cognitive status: : *Oriented to person, place, situation, time and present Family / Caregiver's ability to cope with chronic illness: : a. Adequate (ability to meet patient's medical needs, ensures patient attends medical appts.) Patient and/or caregiver agree upon recommended discharge plan? : Yes Physical Status: : Independent with ADL's Family / Caregiver's ability to cope with chronic illness: : a. Adequate (ability to meet patient's medical needs, ensures patient attends medical appts.) Functional screen assessment: : Basic needs can adequately be met by self Does the patient have the ability to pay for or attain post discharge needs / services? : Yes Living Arrangements: : Home with Extended Family Is there a likelihood that the patient will require additional services to return to the preadmission environment? : Yes Equipment needed for post hospitalization: : None Baseline cognitive status: : *Oriented to person, place, situation, time and present Patient with capacity for self-care or can be cared for in same environment as prior to hospitalization? : Yes Physical environment modification needed / anticipated for discharge: : No Medication Management: : Patient states can afford medications Medication Management: : Patient states can read and understand medication labels Pharmacy name(s): : [facility]. Does Patient have transportation to get home and to follow-up medical appointments when discharged from the hospital? : Yes Would patient like to participate in any Care Coordination programs (if applicable): : Not applicable Does the patient have electricity at home? : Yes Does the patient have running water in their house? : Yes Equipment in use: : Cane - Single Leg Mental health screen: : No mental health history DCP Re-evaluation QUESTION: ANSWER Would patient like to participate in any Care Coordination programs (if applicable): : Not applicable PATIENT: DAVEY CORNELIUS ENCOUNTER: [id number] MEDICAL RECORD#: [id number] ADMISSION DATE: 11/24/2020 DISCHARGE DATE: 12/10/2020 ATTENDING MD: JOSE MUNOZ : AGE: 54 MARITAL STATUS: D DC PLAN ID: [id number] FACILITY: [facility] PRINTED ON: 12/13/20 14:29 CT All edits/amendments must be made on the electronic document DICTATION DATE: 12/13/201428 MIXING OPERATOR: ERENDIRA 12/13/201428 RPT#: [id number] DC DATE:12/10/20 STATUS: DIS IN [facility] [address] [facility] [place] [address] END OF REPORT
== END 2020-12-10 14:42 | disposition home or self-care (01) | DRG 233 ==
LOC: D.ER 23:59 → D.ICU 11-24 04:48 → D.CVICU 11-24 04:48 → D.M2 12-07 12:01
PROVIDERS: Family Medicine; Internal Medicine Interventional Cardiology; Internal Medicine Pulmonary Disease; Thoracic Surgery (Cardiothoracic Vascular Surgery); ADMIT Emergency Medicine; ATTEND Emergency Medicine
PROC: 5A09357 Assistance with Respiratory Ventilation, Less than 24 Consecutive Hours, Continuous Positive Airway Pressure (ICD-10-PCS; principal; 2020-11-24)
PROC: 4A023N7 Measurement of Cardiac Sampling and Pressure, Left Heart, Percutaneous Approach (ICD-10-PCS; 2020-11-26)
PROC: 5A02210 Assistance with Cardiac Output using Balloon Pump, Continuous (ICD-10-PCS; 2020-11-26)
PROC: B2111ZZ Fluoroscopy of Multiple Coronary Arteries using Low Osmolar Contrast (ICD-10-PCS; 2020-11-26)
PROC: B2151ZZ Fluoroscopy of Left Heart using Low Osmolar Contrast (ICD-10-PCS; 2020-11-26)
PROC: 0210099 Bypass Coronary Artery, One Artery from Left Internal Mammary with Autologous Venous Tissue, Open Approach (ICD-10-PCS; 2020-11-28)
PROC: 021109W Bypass Coronary Artery, Two Arteries from Aorta with Autologous Venous Tissue, Open Approach (ICD-10-PCS; 2020-11-28)
PROC: 06BP4ZZ Excision of Right Saphenous Vein, Percutaneous Endoscopic Approach (ICD-10-PCS; 2020-11-28)
PROC: 05BA4ZZ Excision of Left Brachial Vein, Percutaneous Endoscopic Approach (ICD-10-PCS; 2020-11-28)
PROC: 0B9M8ZZ Drainage of Bilateral Lungs, Via Natural or Artificial Opening Endoscopic (ICD-10-PCS; 2020-12-02)
DX: I21.4 Non-ST elevation (NSTEMI) myocardial infarction (principal); J18.9 Pneumonia, unspecified organism; J96.01 Acute respiratory failure with hypoxia; I50.21 Acute systolic (congestive) heart failure; E87.2 Acidosis; I25.10 Atherosclerotic heart disease of native coronary artery without angina pectoris; Z20.822 Contact with and (suspected) exposure to COVID-19; J44.9 Chronic obstructive pulmonary disease, unspecified; E11.65 Type 2 diabetes mellitus with hyperglycemia; I11.0 Hypertensive heart disease with heart failure; E78.5 Hyperlipidemia, unspecified; E87.6 Hypokalemia; E83.42 Hypomagnesemia; E88.09 Other disorders of plasma-protein metabolism, not elsewhere classified